=== PATIENT | male | born 1970 | race Caucasian/White ===

== ENCOUNTER → 2017-03-30 | Outpatient (CLI) | payer SELFPAY ==
[~2017-03-30] MED LIST: ALPR.25 PO; ALPR1; BACL10; BACL10 PO; BUPR150T2; CIPR250 PO; CLIN300 PO; Cranberry 4001 EACH PO; DIAZ10; ERGO400 PO; FENTANYL; HYDACE10; HYDACE10 PO; HYDACE5; HYDACE5 PO; LEVFLO250 PO; LEVFLO500 PO; METH10; MULTI-VITAMIN1 EAC1 PO; Norco 10-325 T1 EACH PO; ONDA8ODT MM; OXYACE5T PO; PROC10; PROM25 PO; RXONDA4ODT MM; SODBIC650; SODBIC650 PO; SULTRIDS PO; TEMA15; TEMA15 PO; TEMA30; TRIMIX INJ; VENL37.5; Vitamin C100 M1 PO
== END | disposition home or self-care (01) ==
LOC: LAB 16:50
DX: R31.9 Hematuria, unspecified (principal); Z93.6 Other artificial openings of urinary tract status
CPT/HCPCS: 87070; 87077; 87086; 87186; 87205

== ENCOUNTER → 2018-12-31 | Outpatient (CLI) | payer OTHER | END | disposition home or self-care (01) | LOC: LAB UCHC 08:00 → LAB SHORT 08:00 | DX: N10 Acute pyelonephritis (principal) | CPT/HCPCS: 87077; 87086; 87186 ==

== ENCOUNTER → 2019-01-31 | Outpatient (CLI) | payer OTHER ==
[~2019-01-31] MED LIST changes: +AIRDUO RESPICL1 EAC3 INH; +ASCO500 PO; +BENZ100A PO; +CEFD300 PO; -ERGO400 PO; +GABA300 PO; +GUAI600T33 PO; +NEURONTIN300 MG PO; +VITAMIN D10000 UNIT PO; -Vitamin C100 M1 PO
== END | disposition home or self-care (01) ==
LOC: LAB SHORT 15:00 → LAB UCHC 15:00
DX: N39.0 Urinary tract infection, site not specified (principal)
CPT/HCPCS: 87077; 87086; 87186

== ENCOUNTER 2019-03-17 06:47 | Inpatient (IN) | payer OTHER ==
[~2019-03-17] VITALS: Ht 104.1 cm; Wt 55.8 kg
[~2019-03-17 06:47] MED LIST changes: -AIRDUO RESPICL1 EAC3 INH; -BENZ100A PO; -CEFD300 PO; -GABA300 PO; -GUAI600T33 PO; -NEURONTIN300 MG PO
[2019-03-17] MEDS ORDERED: NEURONTIN300 MG PO (07:11)
[2019-03-17 07:48] LABS: BASOPHILS ABSOLUTE AUTO 0.01 K/mm3 (0.00-0.23); BASOPHILS PERCENT AUTO 0 % (0-2); EOSINOPHILS PERCENT AUTO 0 % (0-6); IMMATURE GRAN ABSOLUTE AUTO 0.07 K/mm3 (0.00-0.10); IMMATURE GRAN PERCENT AUTO 1 % (0-1); LYMPHOCYTES ABSOLUTE AUTO 0.89 K/mm3 (0.84-5.20); LYMPHOCYTES PERCENT AUTO 7 % (21-46); MONOCYTES ABSOLUTE AUTO 1.07 K/mm3 (0.16-1.47); MONOCYTES PERCENT AUTO 9 % (4-13); Mean Corpuscular HGB 32.1 pg (26.0-34.0); Mean Corpuscular HGB Conc 33.3 g/dL (31.5-36.5); Mean Platelet Volume 10.1 fL (9.1-12.4); NEUTROPHILS PERCENT AUTO 84 % (41-73); NRBC ABSOLUTE 0.04 K/mm3 (0.00-0.02); NRBC Auto 0.3 /100 WBC (0.0-0.2); Platelet Count 418 K/mm3 (150-400); RDW Coefficient Variation 14.4 % (11.7-14.2); Red Blood Cell Count 5.61 M/mm3 (4.30-5.90); White Blood Cell Count 12.64 K/mm3 (4.00-11.30)
[2019-03-17 07:49] LABS: Mean Corpuscular Volume 96 fL (80-100)
[2019-03-17 08:09] LABS: Albumin/Globulin Ratio 1.2 (0.8-1.8); Bilirubin, Total 0.8 mg/dL (0.1-1.0); Bun/Creatinine Ratio 46.2 (12.0-20.0); Calcium, Blood 9.5 mg/dL (8.5-10.1); Creatinine, Blood 1.73 mg/dL (0.60-1.20); Globulin, Blood 3.3 g/dL (2.2-4.0); Potassium, Blood 2.9 mmol/L (3.5-5.5); Total Protein, Blood 7.3 g/dL (6.4-8.2)
[2019-03-17 11:06] LABS: Magnesium, Blood 2.1 mg/dL (1.6-2.4); Phosphorus, Blood 2.6 mg/dL (2.5-4.9)
[2019-03-17 11:27] LABS: Source, Urine Clean Catch
[2019-03-17 11:30] LABS: Bilirubin, Urine Neg (Neg); Blood, Urine 2+ (Neg); Glucose Qualitative, Urine Neg (Neg); Ketones, Urine Neg (Neg); Leukocyte Esterase, Urine Neg (Neg); Nitrite, Urine Neg (Neg); Protein, Urine 1+ (Neg); Urobilinogen, Urine NORM (Normal)
[2019-03-17 11:32] LABS: Base Excess Venous -20.1 mmol/L; Bicarbonate Venous 12.4 mmol/L (24.0-30.0); PCO2 Venous 15.8 mmHg (38-42); PO2 Venous 152 mmHg (38-42)
[2019-03-17 11:33] LABS: pH Blood Venous 7.26 (7.34-7.37)
[2019-03-17 11:44] LABS: Appearance, Urine Clear (Clear); Color, Urine Yellow (P-Yellow)
[2019-03-17 11:47] LABS: Bacteria Few /hpf; Squamous Epithelial Cells Rare /hpf (Few)
[2019-03-17] MEDS ORDERED: GABA300 PO (12:39)
--- NOTE | 2019-03-17 15:29 | NUR ---
PT ADMITTED AT 1240. LATE ENTRY PT ADMITTED IN STABLE CONDITION WITH VSS. PT ORIENTED TO ROOM. CALL LIGHT IN REACH. PT MEDICATED FOR PAIN. POTASSIUM AND ANTIBIOTIC STARTED. BEVERAGES GIVEN. PT DENIES OTHER NEEDS.
--- NOTE | 2019-03-17 16:29 | NUR ---
SHIFT SUMMARY PT MEDICATED FOR PAIN 2X SO FAR THIS SHIFT. PT REQUESTING AIR BED. NO BEDS AVAILABLE AT THIS TIME. METAL ORGAN PIPE MAKER NOTIFIED. PT SELF CATHS IN ROOM. OSTOMY WNL. PT FINISHING 2ND POTASSIUM BAG AT THIS TIME. NO CHANGES IS ASSESSMENT AT THIS TIME. WILL CONTINUE TO MONITOR UNTIL TURNOVER IS COMPLETE.
--- NOTE | 2019-03-18 05:07 | NUR ---
SHIFT SUMMARY A/O, ABLE TO MAKE NEEDS KNOWN. COOPERATIVE WITH CARE. CALLS AND ANSWERS QUESTIONS APPROPRIATELY. C/O PAIN/DISCOMFORT AND N/V T/O SHIFT; MEDICATED PER EMAR. VSS/AFEBRILE. NOTED HYPERTENSION; APPEARS ON TREND WITH PREVIOUS PRESSURES. REMAINS ON CLEAR LIQUID DIET; MINIMAL TOLERANCE. APPEARED TO REST OFF AND ON T/O SHIFT. TELE RUNNING SR IN 90S PER PCU FAT PURIFICATION WORKER. NO OTHER CHANGES NOTED. BED IN LOWEST POSITION. CALL LIGHT AND BELONGINGS WITHIN REACH. WCTM. REPORT TO ONCOMING RN.
[2019-03-18 05:50] LABS: BASOPHILS ABSOLUTE AUTO 0.01 K/mm3 (0.00-0.23); BASOPHILS PERCENT AUTO 0 % (0-2); EOSINOPHILS PERCENT AUTO 0 % (0-6); Hematocrit 45.7 % (37.0-53.0); Hemoglobin 15.1 g/dL (13.5-17.5); IMMATURE GRAN ABSOLUTE AUTO 0.06 K/mm3 (0.00-0.10); IMMATURE GRAN PERCENT AUTO 1 % (0-1); LYMPHOCYTES ABSOLUTE AUTO 1.06 K/mm3 (0.84-5.20); LYMPHOCYTES PERCENT AUTO 9 % (21-46); MONOCYTES ABSOLUTE AUTO 0.97 K/mm3 (0.16-1.47); MONOCYTES PERCENT AUTO 8 % (4-13); Mean Corpuscular HGB 32.2 pg (26.0-34.0); Mean Corpuscular Volume 97 fL (80-100); Mean Platelet Volume 10.5 fL (9.1-12.4); NEUTROPHILS ABSOLUTE AUTO 10.04 K/mm3 (1.96-9.15); NEUTROPHILS PERCENT AUTO 83 % (41-73); Platelet Count 245 K/mm3 (150-400); RDW Coefficient Variation 14.6 % (11.7-14.2); RDW Standard Deviation 52.4 fL (35.1-46.3); Red Blood Cell Count 4.69 M/mm3 (4.30-5.90); White Blood Cell Count 12.14 K/mm3 (4.00-11.30)
[2019-03-18 06:09] LABS: Calcium, Blood 8.3 mg/dL (8.5-10.1); Creatinine, Blood 1.49 mg/dL (0.60-1.20)
--- NOTE | 2019-03-18 08:33 | NUR ---
PAIN MED-NORCO DR. ESTEBAN NOTIFIED THAT PT PAIN IS UNCONTROLLED. PT HOME DOSE OF NORCO ORDERED & ADDED. WILL CONTINUE TO ADD.
--- NOTE | 2019-03-18 18:02 | NUR ---
SHIFT SUMMARY RESP PANEL OBTAINED THIS SHIFT. AWAITING RESULTS. PT SLEPT MOST THE AM. MEDICATED MULTIPLE TIMES THIS SHIFT. SEE EMAR. PT NOT TOLERATING MUCH PO INTAKE EXCEPT WATER. IV FLUIDS RUNNING ORDERED. CONTINUED CLEAR LIQUID. PT SELF CATHING. NO OTHER CHANGES IN ASSESSMENT AT THIS TIME. VSS. WILL CONTINUE TO MONITOR UNTIL TURNOVER IS COMPLETE.
[2019-03-18 19:20] LABS: Adenovirus Not Detected (NOT DETECT); Bordetella pertussis Not Detected (NOT DETECT); Chlamydophila pneumoniae Not Detected (NOT DETECT); Coronavirus 229E Not Detected (NOT DETECT); Coronavirus HKU1 Not Detected (NOT DETECT); Coronavirus NL63 Not Detected (NOT DETECT); Coronavirus OC43 Not Detected (NOT DETECT); Human Metapneumovirus Not Detected (NOT DETECT); Human Rhinovirus/Enterovirus Not Detected (NOT DETECT); Influenza A Not Detected (NOT DETECT); Influenza A/2009-H1 Not Detected (NOT DETECT); Influenza A/H1 Not Detected (NOT DETECT); Influenza A/H3 Not Detected (NOT DETECT); Influenza B Not Detected (NOT DETECT); Mycoplasma pneumoniae Not Detected (NOT DETECT); Parainfluenza Virus 1 Not Detected (NOT DETECT); Parainfluenza Virus 2 Not Detected (NOT DETECT); Parainfluenza Virus 3 Not Detected (NOT DETECT); Parainfluenza Virus 4 Not Detected (NOT DETECT); Respiratory Syncytial Virus Not Detected (NOT DETECT)
--- NOTE | 2019-03-19 05:03 | NUR ---
SHIFT SUMMARY PATIENT HAD NO ACUTE CHANGES OBSERVED THIS SHIFT. AXOX 4 AND W/C BOUND/BEDFAST. SELF CATHING AND OSTOMY SELF CARE. REPORTED BACK PAIN AND NORCO GIVEN PER EMAR. PIV REMAINS INTACT. D5W 1/2NS KCL 10 MEQ INFUSING AT 150 mL/HR. VSS/AFBERILE. DENIES SOB AND N/V. SCHEDULE HUMIBID AND TESSALON FOR COUGH GIVEN. MARINE EQUIPMENT PRESERVATION INSPECTOR REPORTS NSR W/PVC AT 73. COOPERATIVE WITH CARE. CALL LIGHT IN REACH. BED IN LOWEST POSITION. WILL CONTINUE TO MONITOR UNTIL DAY SHIFT NURSE ASSUMES CARE.
[2019-03-19 05:49] LABS: BASOPHILS ABSOLUTE AUTO 0.01 K/mm3 (0.00-0.23); BASOPHILS PERCENT AUTO 0 % (0-2); EOSINOPHILS ABSOLUTE AUTO 0.11 K/mm3 (0.00-0.68); EOSINOPHILS PERCENT AUTO 1 % (0-6); Hematocrit 45.5 % (37.0-53.0); Hemoglobin 14.4 g/dL (13.5-17.5); IMMATURE GRAN ABSOLUTE AUTO 0.03 K/mm3 (0.00-0.10); IMMATURE GRAN PERCENT AUTO 0 % (0-1); LYMPHOCYTES ABSOLUTE AUTO 0.82 K/mm3 (0.84-5.20); LYMPHOCYTES PERCENT AUTO 9 % (21-46); MONOCYTES ABSOLUTE AUTO 0.91 K/mm3 (0.16-1.47); MONOCYTES PERCENT AUTO 10 % (4-13); Mean Corpuscular HGB 31.9 pg (26.0-34.0); Mean Corpuscular HGB Conc 31.6 g/dL (31.5-36.5); Mean Platelet Volume 10.7 fL (9.1-12.4); NEUTROPHILS ABSOLUTE AUTO 7.42 K/mm3 (1.96-9.15); NEUTROPHILS PERCENT AUTO 80 % (41-73); Platelet Count 181 K/mm3 (150-400); RDW Coefficient Variation 14.8 % (11.7-14.2); Red Blood Cell Count 4.51 M/mm3 (4.30-5.90)
[2019-03-19 05:54] LABS: Mean Corpuscular Volume 101 fL (80-100)
[2019-03-19 06:09] LABS: Albumin, Blood 2.7 g/dL (3.4-5.0); Albumin/Globulin Ratio 1.1 (0.8-1.8); Bilirubin, Total 0.7 mg/dL (0.1-1.0); Bun/Creatinine Ratio 37.2 (12.0-20.0); Calcium, Blood 7.5 mg/dL (8.5-10.1); Creatinine, Blood 1.37 mg/dL (0.60-1.20); Globulin, Blood 2.4 g/dL (2.2-4.0)
[2019-03-19 06:10] LABS: Total Protein, Blood 5.1 g/dL (6.4-8.2)
--- NOTE | 2019-03-19 06:53 | NUR ---
PT gave this commercial loan underwriter permission to care for him 03/19/2019.
--- NOTE | 2019-03-19 13:44 | NUR ---
Pt. in bed restingb he reports doing much better offered prayers.
--- NOTE | 2019-03-19 14:20 | NUR ---
HE LIKES TO KEEP HIS DOOR CLOSED AND HIS BLINDS SHUT. HE JONES SELF CATHED X1 SO FAR TODAY. HIS ILEOSTOMY WAS DRAINED OF WATERY GREEN LIQUID. IVF'S CONTINUE. INSPITE OF THE 10MEQ OF KCL HIS POTASSIUM LEVEL THIS AM IS 3.0. TELE NSR. NO REPORT OF PVC'S THIS AM.HIS OWN W/C IS IN THE ROOM HE HAS NOT BEEN OOB YET TODAY. HE HAD 1 VISITOR FOR ABOUT AN HOUR. [place] GIVEN X1 FOR BACK PAIN. PAIN DROPPED ONLY TO 7 FROM AN 8.
[2019-03-19 17:02] LABS: Anion Gap 8 mmol/L (6-16); Blood Urea Nitrogen 41 mg/dL (8-24); Bun/Creatinine Ratio 32.3 (12.0-20.0); CO2, Blood 14 mmol/L (21-32); Calcium, Blood 7.7 mg/dL (8.5-10.1); Chloride, Blood 123 mmol/L (98-108); Creatinine, Blood 1.27 mg/dL (0.60-1.20); Glomerular Filtration Rate >60 (60-); Glucose, Blood 112 mg/dL (70-99); Potassium, Blood 3.2 mmol/L (3.5-5.5); Sodium, Blood 145 mmol/L (136-145)
--- NOTE | 2019-03-19 19:37 | NUR ---
TELE ONGOING. LABS IMPROVED EXCEPT FOR A 3.0 POTASSIUM. IVF'S WITH POTASSIOUM CONTINUE. HE REMAINED IN BED. ILEOSTOMY AND KELLEY POUCH WITHOUT PROBLEMS. NORCO GIVEN X2 THIS SHIFT FOR BACK PAIN WITH A LITTLE RELIEF EACH TIME. TOLERATED HIS REGULAR DINNER TRAY WELL.
--- NOTE | 2019-03-20 04:47 | NUR ---
SHIFT SUMMARY: VSS. AFEB. A/OX4. COMMUNICATES NEEDS. FREQUENT DRY COUGH BEFORE HS, PRN COUGH SYRUP ADMINISTERED PER ORDERS, PT HAS SLEPT QUIETLY WITHOUT NOTICEABLE COUGH THROUGH MUCH OF THE NIGHT. SELF CATHED KOCK POUCH X 1. COLOSTOMY POUCH INTACT AND PRODUCING LIQUID BROWN STOOL. BOTH STOMA'S APPEAR RED AND MOIST. NO ACUTE CHANGES OVERNIGHT. WILL CONT TO MONITOR.
[2019-03-20 05:20] LABS: BASOPHILS ABSOLUTE AUTO 0.02 K/mm3 (0.00-0.23); BASOPHILS PERCENT AUTO 0 % (0-2); EOSINOPHILS ABSOLUTE AUTO 0.39 K/mm3 (0.00-0.68); EOSINOPHILS PERCENT AUTO 5 % (0-6); Hematocrit 45.1 % (37.0-53.0); Hemoglobin 14.8 g/dL (13.5-17.5); IMMATURE GRAN ABSOLUTE AUTO 0.02 K/mm3 (0.00-0.10); IMMATURE GRAN PERCENT AUTO 0 % (0-1); LYMPHOCYTES ABSOLUTE AUTO 1.12 K/mm3 (0.84-5.20); LYMPHOCYTES PERCENT AUTO 15 % (21-46); MONOCYTES ABSOLUTE AUTO 0.84 K/mm3 (0.16-1.47); MONOCYTES PERCENT AUTO 12 % (4-13); Mean Corpuscular HGB 32.1 pg (26.0-34.0); Mean Corpuscular HGB Conc 32.8 g/dL (31.5-36.5); Mean Platelet Volume 10.8 fL (9.1-12.4); NEUTROPHILS ABSOLUTE AUTO 4.94 K/mm3 (1.96-9.15); NEUTROPHILS PERCENT AUTO 67 % (41-73); Platelet Count 162 K/mm3 (150-400); RDW Coefficient Variation 14.4 % (11.7-14.2); RDW Standard Deviation 52.4 fL (35.1-46.3); Red Blood Cell Count 4.61 M/mm3 (4.30-5.90); White Blood Cell Count 7.33 K/mm3 (4.00-11.30)
[2019-03-20 05:21] LABS: Mean Corpuscular Volume 98 fL (80-100)
[2019-03-20] MEDS ORDERED: BENZ100A PO (12:48)
[2019-03-20] MEDS ORDERED: GUAI600T33 PO (12:49)
[2019-03-20] MEDS ORDERED: AIRDUO RESPICL1 EAC3 INH (12:50)
[2019-03-20] MEDS ORDERED: CEFD300 PO (12:51)
--- NOTE | 2019-03-20 14:54 | NUR ---
pt discharged PT VERBALIZED UNDERSTANDING OF THE DC INSTRUCTIONS, APPOINTMENT WAS MADE FOR THE PT FOR FOLLOW UP PRIOR TO DC, THE PTS PRESCRIPTIONS WERE FAXED TO [facility] REQUESTED, THE PT WAS ABLE TO DRESS HIMSELF AND TRANSFERED TO THE WHEELCHAIR UNASSISTED, PT IS AWAITING FOR HIS AT THIS TIME FOR DC
== END 2019-03-20 15:19 | disposition home or self-care (01) | DRG 872 ==
LOC: ER 06:47 → MEDS 11:17 → ENPENDDIS 03-20 14:06 → MEDS 03-20 15:19
PROVIDERS: Emergency Medicine; Internal Medicine; Nurse Practitioner Acute Care; ADMIT Internal Medicine
DX: A41.9 Sepsis, unspecified organism (principal); G82.20 Paraplegia, unspecified; J98.11 Atelectasis; N17.9 Acute kidney failure, unspecified; E86.0 Dehydration; Z89.611 Acquired absence of right leg above knee; Z89.612 Acquired absence of left leg above knee; Z93.3 Colostomy status; Z87.891 Personal history of nicotine dependence; G89.4 Chronic pain syndrome; E87.6 Hypokalemia; R19.7 Diarrhea, unspecified; R11.2 Nausea with vomiting, unspecified
CPT/HCPCS: 0099U; 36415; 71046; 74176; 80048; 80053; 81001; 82550; 82803; 82947; 83690; 83735; 84100; 84145; 85025; 87493; 96361; 96365; 96375; 96376; 99285-25; J0456; J0696; J2405; J2550; J3010; J3480; J7030; J7050; J7120

== ENCOUNTER → 2020-04-28 | Outpatient (CLI) | payer OTHER ==
[~2020-04-28] MED LIST changes: +AIRDUO RESPICL1 EAC3 INH; +BENZ100A PO; +CEFD300 PO; +GABA300 PO; +GUAI600T33 PO; +NEURONTIN300 MG PO
== END | disposition home or self-care (01) ==
LOC: LAB SHORT 08:30 → LAB 08:30
DX: R50.9 Fever, unspecified (principal)
CPT/HCPCS: 87086; 87147

== ENCOUNTER 2020-11-05 12:26 | Emergency (ER) | payer OTHER ==
[~2020-11-05] VITALS: Ht 94 cm; Wt 63.5 kg
[2020-11-05] MEDS ORDERED: BENZ100A PO ×2 (13:11→13:19)
[2020-11-05] MEDS ORDERED: ONDA4ODT MM ×2 (13:11→13:19)
== END 2020-11-05 13:20 | disposition home or self-care (01) ==
LOC: ER 12:26
DX: U07.1 COVID-19 (principal); Z88.5 Allergy status to narcotic agent; Z88.2 Allergy status to sulfonamides; Z88.8 Allergy status to other drugs, medicaments and biological substances; Z79.899 Other long term (current) drug therapy; Z87.891 Personal history of nicotine dependence
CPT/HCPCS: 99282

== ENCOUNTER → 2021-06-20 | Outpatient (CLI) | payer OTHER ==
[~2021-06-20] MED LIST changes: +ONDA4ODT MM
== END | disposition home or self-care (01) ==
LOC: LAB 16:28 → LAB SHORT 16:28
DX: L08.0 Pyoderma (principal)
CPT/HCPCS: 87070; 87205

== ENCOUNTER 2023-11-22 09:27 | Emergency (ER) | payer OTHER ==
[~2023-11-22] VITALS: Wt 68.0 kg
[~2023-11-22 09:27] MED LIST changes: +CEPH500 PO; +MELA3 PO; +METO100ER PO; +MIRALAX11910 PO; +MONDOXYNE NL100 MG; +PREGABALIN75 MG PO; +PROBIOTIC1 EA13 PO
[2023-11-22 09:47] VITALS: BP 133/94
[2023-11-22] MEDS ORDERED: Triamcinolone Inj Susp 40 MG / ML 1ML Vial IM ONE (10:05)
[2023-11-22] MEDS ORDERED: TRIDERM28.4 GM TOP (10:07)
== END 2023-11-22 10:20 | disposition home or self-care (01) ==
LOC: ER 09:27
DX: L25.9 Unspecified contact dermatitis, unspecified cause (principal); Z87.891 Personal history of nicotine dependence; Z79.899 Other long term (current) drug therapy; Z88.5 Allergy status to narcotic agent; Z88.2 Allergy status to sulfonamides; Z88.6 Allergy status to analgesic agent; Z88.1 Allergy status to other antibiotic agents; Z88.8 Allergy status to other drugs, medicaments and biological substances
CPT/HCPCS: 96372; 99282-25; J3301

== ENCOUNTER 2023-11-26 19:18 | Emergency (ER) | payer OTHER ==
[~2023-11-26] VITALS: Ht 116.8 cm; Wt 68.0 kg
[~2023-11-26 19:18] MED LIST changes: +TRIDERM28.4 GM TOP
[2023-11-26 20:31] LABS: Base Excess Venous 0.9 mmol/L; Bicarbonate Venous 26.3 mmol/L (24.0-30.0); PCO2 Venous 28.5 mmHg (38-42); pH Blood Venous 7.52 (7.34-7.37)
[2023-11-26 20:39] LABS: BASOPHILS ABSOLUTE AUTO 0.02 K/mm3 (0.00-0.23); BASOPHILS PERCENT AUTO 0 % (0-2); EOSINOPHILS ABSOLUTE AUTO 0.06 K/mm3 (0.00-0.68); EOSINOPHILS PERCENT AUTO 1 % (0-6); Hematocrit 44.9 % (37.0-53.0); Hemoglobin 15.6 g/dL (13.5-17.5); IMMATURE GRAN ABSOLUTE AUTO 0.02 K/mm3 (0.00-0.10); IMMATURE GRAN PERCENT AUTO 0 % (0-1); LYMPHOCYTES ABSOLUTE AUTO 0.54 K/mm3 (0.84-5.20); LYMPHOCYTES PERCENT AUTO 10 % (21-46); MONOCYTES ABSOLUTE AUTO 0.57 K/mm3 (0.16-1.47); MONOCYTES PERCENT AUTO 11 % (4-13); Mean Corpuscular HGB 34.5 pg (26.0-34.0); Mean Corpuscular HGB Conc 34.7 g/dL (31.5-36.5); Mean Corpuscular Volume 99 fL (80-100); Mean Platelet Volume 10.5 fL (9.1-12.4); NEUTROPHILS ABSOLUTE AUTO 4.19 K/mm3 (1.96-9.15); NEUTROPHILS PERCENT AUTO 78 % (41-73); Platelet Count 163 K/mm3 (150-400); RDW Coefficient Variation 15.2 % (11.7-14.2); RDW Standard Deviation 55.4 fL (35.1-46.3); Red Blood Cell Count 4.52 M/mm3 (4.30-5.90)
[2023-11-26 21:28] LABS: Albumin, Blood 3.6 g/dL (3.4-5.0); Bilirubin, Total 0.9 mg/dL (0.1-1.0); Calcium, Blood 9.9 mg/dL (8.5-10.1); Creatinine, Blood 1.16 mg/dL (0.60-1.20); Globulin, Blood 3.6 g/dL (2.2-4.0); Potassium, Blood 4.6 mmol/L (3.5-5.5); Total Protein, Blood 7.2 g/dL (6.4-8.2)
[2023-11-26] MEDS ORDERED: Lactated Ringer's 1,000 ML IV SCH (22:55)
[2023-11-26] MEDS ORDERED: HYDROmorphone HCl/Pf 1MG SYR IV ONE (23:00)
[2023-11-27] MEDS ORDERED: NS 1,000 ML IV SCH (00:05)
[2023-11-27 00:21] LABS: Source, Urine Urostomy Bag
[2023-11-27 00:26] LABS: Bilirubin, Urine Neg (Neg); Blood, Urine 5+ (Neg); Glucose Qualitative, Urine Neg (Neg); Ketones, Urine 2+ (Neg); Leukocyte Esterase, Urine 3+ (Neg); Nitrite, Urine Neg (Neg); Protein, Urine 2+ (Neg); Specific Gravity, Urine 1.005 (1.003-1.022); Urobilinogen, Urine NORM (Normal)
[2023-11-27] MEDS ORDERED: HYDROmorphone HCl/Pf 1MG SYR IV ONE (00:30)
[2023-11-27 00:33] LABS: Appearance, Urine Cloudy (Clear); Color, Urine Yellow (P-Yellow)
[2023-11-27 00:34] LABS: Amorphous Mod (0-Heavy); Bacteria Mod /hpf; Mucus Mod (0-Heavy); Squamous Epithelial Cells Not Seen /hpf (Few); White Blood Cells, Urine 50-100 /hpf (0-5)
[2023-11-27 02:22] LABS: Calcium, Blood 8.3 mg/dL (8.5-10.1); Creatinine, Blood 1.22 mg/dL (0.60-1.20); Potassium, Blood 4.2 mmol/L (3.5-5.5)
[2023-11-27 02:30] VITALS: BP 145/98
[2023-11-27 02:30] LABS: C DIFFICILE DNA NEGATIVE (Negative)
== END 2023-11-27 03:26 | disposition home or self-care (01) ==
LOC: ER 19:18
PROVIDERS: Emergency Medicine; Student in an Organized Health Care Education/Training Program
DX: R11.2 Nausea with vomiting, unspecified (principal); R19.7 Diarrhea, unspecified; Z79.899 Other long term (current) drug therapy; Z88.5 Allergy status to narcotic agent; Z88.2 Allergy status to sulfonamides; Z88.8 Allergy status to other drugs, medicaments and biological substances
CPT/HCPCS: 80048; 80053; 81001; 82803; 83605; 83690; 85025; 87086; 87493; 93005; 93010; 96361; 96374; 96376; 99284-25; J1170; J7030; J7120

== ENCOUNTER 2024-01-23 19:12 | Inpatient (IN) | payer OTHER ==
[~2024-01-23] VITALS: Ht 121.9 cm; Wt 71.5 kg
[2024-01-23 20:16] LABS: Bilirubin, Total 0.5 mg/dL (0.1-1.0); Bun/Creatinine Ratio 44.8 (12.0-20.0); Calcium, Blood 7.6 mg/dL (8.5-10.1); Creatinine, Blood 1.16 mg/dL (0.60-1.20); Globulin, Blood 3.1 g/dL (2.2-4.0); Potassium, Blood 4.7 mmol/L (3.5-5.5); Total Protein, Blood 6.1 g/dL (6.4-8.2)
[2024-01-23 20:16] LABS: Influenza A, PCR NEGATIVE (NEGATIVE); Influenza B, PCR NEGATIVE (NEGATIVE); Resp Syncytial Virus, PCR NEGATIVE (NEGATIVE); SARS-Cov-2 (COVID-19) PCR, MMC NEGATIVE (NEGATIVE)
[2024-01-23 21:10] LABS: BASOPHILS ABSOLUTE AUTO 0.03 K/mm3 (0.00-0.23); BASOPHILS PERCENT AUTO 1 % (0-2); EOSINOPHILS ABSOLUTE AUTO 0.01 K/mm3 (0.00-0.68); EOSINOPHILS PERCENT AUTO 0 % (0-6); Hematocrit 45.3 % (37.0-53.0); Hemoglobin 14.4 g/dL (13.5-17.5); IMMATURE GRAN PERCENT AUTO 2 % (0-1); LYMPHOCYTES ABSOLUTE AUTO 0.57 K/mm3 (0.84-5.20); LYMPHOCYTES PERCENT AUTO 9 % (21-46); MONOCYTES ABSOLUTE AUTO 0.58 K/mm3 (0.16-1.47); MONOCYTES PERCENT AUTO 9 % (4-13); Mean Corpuscular HGB 35.1 pg (26.0-34.0); Mean Corpuscular HGB Conc 31.8 g/dL (31.5-36.5); Mean Corpuscular Volume 111 fL (80-100); NEUTROPHILS ABSOLUTE AUTO 5.08 K/mm3 (1.96-9.15); NEUTROPHILS PERCENT AUTO 80 % (41-73); NRBC ABSOLUTE 0.04 K/mm3 (0.00-0.02); NRBC Auto 0.6 /100 WBC (0.0-0.2); Platelet Count 177 K/mm3 (150-400); RDW Coefficient Variation 15.6 % (11.7-14.2); RDW Standard Deviation 63.4 fL (35.1-46.3); White Blood Cell Count 6.37 K/mm3 (4.00-11.30)
[2024-01-23 22:38] LABS: Base Excess Venous -23.5 mmol/L; Bicarbonate Venous 10.2 mmol/L (24.0-30.0); PCO2 Venous 12.6 mmHg (38-42)
[2024-01-23 22:40] LABS: pH Blood Venous 7.19 (7.34-7.37)
[2024-01-23] MEDS ORDERED: NS 1,000 ML IV SCH ×2 (22:45→23:30)
[2024-01-23] MEDS ORDERED: Ondansetron HCl 2 MG / ML 2ML Vial IV ONE (22:50)
[2024-01-23] MEDS ORDERED: Lactated Ringer's 1,000 ML IV SCH (23:05)
[2024-01-23] MEDS ORDERED: Sodium Bicarb 8.4% Inj 150 MEQ in Dextrose 5% 1,000 ML IV ONE (23:25)
[2024-01-23] MEDS ORDERED: Sodium Bicarb 8.4% 1 MEQ/ML 50 ML Vial IV ONE (23:30)
[2024-01-23] MEDS ORDERED: CALCIUM GLUC IN NACL, ISO-OSM 100 ML IV ONE (23:35)
[2024-01-23] MEDS ORDERED: Potassium Acetate 20 MEQ in NS 100 ML IV ONE (23:45)
[2024-01-23] MEDS ORDERED: HYDROmorphone HCl/Pf 1MG SYR IV ONE (23:45)
[2024-01-23 23:55] LABS: Magnesium, Blood 2.2 mg/dL (1.6-2.4); Phosphorus, Blood 2.1 mg/dL (2.5-4.9)
[2024-01-23] MEDS ORDERED: Potassium Chl 20MEQ/Water100ML 100 ML IV STA (23:55)
[2024-01-24] VITALS (7 sets, daily range): BP systolic 111–155; BP diastolic 76–104
[2024-01-24] MEDS ORDERED: Ondansetron HCl 2 MG / ML 2ML Vial IV PRN (00:20)
[2024-01-24] MEDS ORDERED: Sodium Bicarb 8.4% Inj 150 MEQ in Dextrose 5% 1,000 ML IV ONE (00:20)
[2024-01-24] MEDS ORDERED: FLU VACC TS2024-25(6MOS UP)/PF 45 MCG/0.5 ML SYRINGE IM ONE (00:25)
[2024-01-24] MEDS ORDERED: FentaNYL Citrate 50 MCG/ML 2 ML Injection IV PRN (00:25)
[2024-01-24 00:32] LABS: Source, Urine Clean Catch
[2024-01-24 00:36] LABS: Bilirubin, Urine Neg (Neg); Blood, Urine 4+ (Neg); Glucose Qualitative, Urine Neg (Neg); Ketones, Urine 2+ (Neg); Leukocyte Esterase, Urine 3+ (Neg); Nitrite, Urine Neg (Neg); Protein, Urine 3+ (Neg); Urobilinogen, Urine NORM (Normal)
[2024-01-24 00:44] LABS: Appearance, Urine Hazy (Clear); Color, Urine Pale Yellow (P-Yellow)
[2024-01-24 00:45] LABS: Amorphous Heavy (0-Heavy); Bacteria Many /hpf; Squamous Epithelial Cells Not Seen /hpf (Few); White Blood Cells, Urine 50-100 /hpf (0-5)
[2024-01-24 00:46] LABS: U Amphetamine Screen Not Detected; U Barbituate Screen Not Detected; U Benzodiazapine Screen Not Detected; U Buprenorphine Screen Not Detected; U Cannabinoids Screen Not Detected; U Cocaine Screen Not Detected; U Methadone Screen Not Detected; U Methamphetamine Screen Not Detected; U Opiates Screen DETECTED; U Oxycodone Screen DETECTED; U Phencyclidine Screen Not Detected
[2024-01-24] MEDS ORDERED: LevoFLOXacin 750 MG/D5W 150ML 150 ML IV SCH (03:14)
[2024-01-24] MEDS ORDERED: Potassium Phosphate Dibasic 20 MM in Dextrose 5% 500 ML IV ONE (03:30)
[2024-01-24 04:27] LABS: BASOPHILS ABSOLUTE AUTO 0.01 K/mm3 (0.00-0.23); BASOPHILS PERCENT AUTO 0 % (0-2); EOSINOPHILS ABSOLUTE AUTO 0.01 K/mm3 (0.00-0.68); EOSINOPHILS PERCENT AUTO 0 % (0-6); Hematocrit 36.3 % (37.0-53.0); Hemoglobin 12.1 g/dL (13.5-17.5); IMMATURE GRAN ABSOLUTE AUTO 0.03 K/mm3 (0.00-0.10); IMMATURE GRAN PERCENT AUTO 1 % (0-1); LYMPHOCYTES PERCENT AUTO 6 % (21-46); MONOCYTES ABSOLUTE AUTO 0.39 K/mm3 (0.16-1.47); MONOCYTES PERCENT AUTO 11 % (4-13); Mean Corpuscular HGB 35.8 pg (26.0-34.0); Mean Corpuscular HGB Conc 33.3 g/dL (31.5-36.5); Mean Corpuscular Volume 107 fL (80-100); Mean Platelet Volume 9.6 fL (9.1-12.4); NEUTROPHILS ABSOLUTE AUTO 3.02 K/mm3 (1.96-9.15); NEUTROPHILS PERCENT AUTO 82 % (41-73); Platelet Count 121 K/mm3 (150-400); RDW Coefficient Variation 15.7 % (11.7-14.2); RDW Standard Deviation 61.2 fL (35.1-46.3); Red Blood Cell Count 3.38 M/mm3 (4.30-5.90); White Blood Cell Count 3.66 K/mm3 (4.00-11.30)
[2024-01-24 04:33] LABS: Base Excess Venous -8.6 mmol/L; Bicarbonate Venous 17.4 mmol/L (24.0-30.0)
[2024-01-24] MEDS ORDERED: HYDROmorphone HCl/Pf 1MG SYR IV PRN (04:40)
[2024-01-24 04:50] LABS: Albumin, Blood 2.8 g/dL (3.4-5.0); Bilirubin, Total 0.7 mg/dL (0.1-1.0); Bun/Creatinine Ratio 40.2 (12.0-20.0); Calcium, Blood 8.2 mg/dL (8.5-10.1); Creatinine, Blood 1.17 mg/dL (0.60-1.20); Globulin, Blood 2.7 g/dL (2.2-4.0); Potassium, Blood 4.1 mmol/L (3.5-5.5); Total Protein, Blood 5.5 g/dL (6.4-8.2)
[2024-01-24] MEDS ORDERED: Prochlorperazine Edisylate 10 mg Vial IV PRN (04:50)
--- NOTE | 2024-01-24 06:32 | NUR ---
SHIFT SUMMARY NEURO: A/OX4. TREMORS BASELING. PARAPALEGIC WITH BILTERAL AKA. CARDIAC: TACHYCARDIC STILL. LUNGS: C/O SOB OR "POSSIBLY ANXIETY". PT ON ROOM AIR. LUNGS DIMINISHED BUT CLEAR. PT REPORTS LOW LUNG VOLUMES ATE BASELINE DT BODY HABITUS. GI/: OSTOMY TO RUQ. DARK GREEN/BROWN, SOFT OUTPUT. C/O N/V- ZOFRAN AND COMPEZINE GIVEN. PT HAS A KOCK BLADDER AND SELF CATHS. INTERMITTENT EPISODES OF BLADDER SPASM. PT REPORTS UNABLE TO KEEP ORAL MEDS DOWN SINCE . POTASSIUM AND PHOS REPLACED. PT CURRENTLY ON BICARB GTT.
[2024-01-24] MEDS ORDERED: Metoprolol Succinate 50 MG TABCR PO SCH (09:00)
[2024-01-24] MEDS ORDERED: Triamcinolone Acet 0.1% Cream 15 gm TOP SCH (09:00)
[2024-01-24] MEDS ORDERED: Enoxaparin 40 MG/0.4 ML SYR SC SCH (09:00)
[2024-01-24] MEDS ORDERED: Lactobacil 2-S.Thermo-Bifido 1 1 Cap PO SCH (09:00)
--- NOTE | 2024-01-24 10:25 | NUR ---
pt is alert, oriented and conversant. Seems withdrawn, quiet but appropriate in conversation. C/o pain 8/ and given 1 mg dilaudid with minimal relief of chronic back pain. Denies nausea. Noted liquid brown stool in his colostomy, hyperactive bowel tones noted throughout. Self catheterization for urine output. IV infusions complete; labs will be drawn at 1030.
--- NOTE | 2024-01-24 10:55 | NUR ---
Difficulty with control of chronic back pain. Call to Dr. Talamantes and he will restart his home medication regime.
[2024-01-24] MEDS ORDERED: HYDROcodone 10-APAP 325 TAB PO PRN ×2 (11:15→11:55)
[2024-01-24 11:25] LABS: Magnesium, Blood 1.8 mg/dL (1.6-2.4)
[2024-01-24 11:26] LABS: Bun/Creatinine Ratio 38.4 (12.0-20.0); Calcium, Blood 7.7 mg/dL (8.5-10.1); Creatinine, Blood 1.12 mg/dL (0.60-1.20); Phosphorus, Blood 1.6 mg/dL (2.5-4.9); Potassium, Blood 3.8 mmol/L (3.5-5.5)
[2024-01-24] MEDS ORDERED: Lactated Ringer's 1,000 ML IV SCH (12:00)
[2024-01-24] MEDS ORDERED: Potassium Phosphate Dibasic 30 MM in Dextrose 5% 500 ML IV STA (12:02)
[2024-01-24] MEDS ORDERED: Pregabalin 75 MG Cap PO SCH (21:00)
[2024-01-24] MEDS ORDERED: Melatonin 3 MG Tab PO SCH (21:00)
[2024-01-24] MEDS ORDERED: Calcium Carbonate 500 MG Tab Chew PO SCH (21:00)
[2024-01-25 04:02] LABS: BASOPHILS ABSOLUTE AUTO 0.01 K/mm3 (0.00-0.23); BASOPHILS PERCENT AUTO 0 % (0-2); EOSINOPHILS ABSOLUTE AUTO 0.05 K/mm3 (0.00-0.68); EOSINOPHILS PERCENT AUTO 2 % (0-6); Hematocrit 33.6 % (37.0-53.0); Hemoglobin 11.2 g/dL (13.5-17.5); IMMATURE GRAN ABSOLUTE AUTO 0.04 K/mm3 (0.00-0.10); IMMATURE GRAN PERCENT AUTO 2 % (0-1); LYMPHOCYTES ABSOLUTE AUTO 0.17 K/mm3 (0.84-5.20); LYMPHOCYTES PERCENT AUTO 6 % (21-46); MONOCYTES ABSOLUTE AUTO 0.24 K/mm3 (0.16-1.47); MONOCYTES PERCENT AUTO 9 % (4-13); Mean Corpuscular HGB Conc 33.3 g/dL (31.5-36.5); Mean Corpuscular Volume 108 fL (80-100); NEUTROPHILS PERCENT AUTO 81 % (41-73); Platelet Count 97 K/mm3 (150-400); RDW Coefficient Variation 16.1 % (11.7-14.2); RDW Standard Deviation 63.7 fL (35.1-46.3); Red Blood Cell Count 3.11 M/mm3 (4.30-5.90); White Blood Cell Count 2.71 K/mm3 (4.00-11.30)
[2024-01-25 04:36] LABS: Albumin, Blood 2.5 g/dL (3.4-5.0); Bilirubin, Total 0.3 mg/dL (0.1-1.0); Bun/Creatinine Ratio 32.7 (12.0-20.0); Calcium, Blood 7.9 mg/dL (8.5-10.1); Creatinine, Blood 1.07 mg/dL (0.60-1.20); Globulin, Blood 2.6 g/dL (2.2-4.0); Magnesium, Blood 1.7 mg/dL (1.6-2.4); Phosphorus, Blood 2.4 mg/dL (2.5-4.9); Potassium, Blood 4.2 mmol/L (3.5-5.5); Total Protein, Blood 5.1 g/dL (6.4-8.2)
[2024-01-25 07:34] VITALS: BP 120/84
[2024-01-25] MEDS ORDERED: Ergocalciferol 50000 Intn'l Units PO SCH (08:00)
[2024-01-25] MEDS ORDERED: Sodium Bicarbonate 650 MG Tab PO SCH ×2 (09:10→21:00)
[2024-01-25] MEDS ORDERED: Lidocaine 4% 1 Patch TOP PRN (09:10)
[2024-01-25 11:20] VITALS: BP 123/86
[2024-01-25 12:00] LABS: IMMATURE RETIC FRACTION 25.7 % (2.3-16.0); RETIC HGB EQUIVALENT 39.2 pg (28.20-36.60); RETICULOCYTE ABSOLUTE 0.137 M/mm3 (0.0200-0.1100); RETICULOCYTE COUNT PERCENT 4.39 % (0.50-2.50)
[2024-01-25 12:33] LABS: Percent Saturation 41.2 % (20.0-50.0)
[2024-01-25 12:53] LABS: International Normalized Ratio 0.99; Prothrombin Time Results 10.6 Sec (9.7-11.5)
--- NOTE | 2024-01-25 13:19 | NUR ---
Dr. Talamantes was here to talk with the pt but pt was arousable but unable to stay awake for a conversation. Concern for somnulence, poor p.o. intake, and hypoxia while sleeping. PT will not be discharged by the hospitalist today.
[2024-01-25 13:25] LABS: Base Excess Venous -3.9 mmol/L; Bicarbonate Venous 21.4 mmol/L (24.0-30.0); PCO2 Venous 39.7 mmHg (38-42); pH Blood Venous 7.35 (7.34-7.37)
--- NOTE | 2024-01-25 13:34 | NUR ---
DR. MALDONADO CAME TO BEDSIDE TO DISCUSS THE PLAN OF CARE WITH THE PT AND THE PT COULD NOT STAY AWAKE FOR THE CONVERSATION. THE PT IS DESATURATING TO THE 80'S WHILE ASLEEP AND IS NOW SOMULENT BUT ARROUSABLE. NO PLAN FOR DISCHARGE TODAY
[2024-01-25] MEDS ORDERED: Lactated Ringer's 1,000 ML IV SCH (14:00)
[2024-01-25] MEDS ORDERED: Mag Sulfate 1 GM/D5% 100ML 100 ML IV STA (14:01)
[2024-01-25] MEDS ORDERED: Sodium Phosphate 10 MM in Dextrose 5% 250 ML IV STA (14:04)
[2024-01-25 15:19] VITALS: BP 125/82
--- NOTE | 2024-01-25 17:26 | NUR ---
SHIFT SUMMARY THE PT HAS BEEN ORIENTEDX4, BUT THIS AFTERNOON HE WAS MORE SOMULENT THAN IN THE MORNING. THE PT IS ABLE TO MAKE HIS NEEDS KNOWN. HE STRAIGHT CATH'S HIMSELF, AND HAS AN OSTOMY. THE PT HAS HAD A POOR APPETITE, BUT DENIES ANY N/V. HE HAS BEEN ON 1L NC THIS SHIFT, BUT HE DOES DESATURATE WHEN ASLEEP. DR. MALDONADO ORDERED A SP02 SLEEP TEST FOR TONIGHT. ON TELE HE HAS BEEN SR. BP STABLE. SEE PREVIOUS NOTES FOR MORE DETAILS ON THE SHIFT.
[2024-01-25 21:16] VITALS: BP 123/83
[2024-01-26 00:40] VITALS: BP 149/94
[2024-01-26] MEDS ORDERED: TraZODone HCl 50 MG Tab PO ONE (00:55)
[2024-01-26 03:27] VITALS: BP 123/94
[2024-01-26 04:21] LABS: Hematocrit 32.7 % (37.0-53.0); Mean Corpuscular HGB 35.9 pg (26.0-34.0); Mean Corpuscular HGB Conc 33.6 g/dL (31.5-36.5); Mean Corpuscular Volume 107 fL (80-100); Mean Platelet Volume 11.8 fL (9.1-12.4); Platelet Count 127 K/mm3 (150-400); RDW Coefficient Variation 16.1 % (11.7-14.2); RDW Standard Deviation 63.3 fL (35.1-46.3); Red Blood Cell Count 3.06 M/mm3 (4.30-5.90); White Blood Cell Count 3.11 K/mm3 (4.00-11.30)
[2024-01-26 04:46] LABS: BAND PERCENT MAN 2 % (0-8); BASOPHILS PERCENT MAN 0 % (0-2); EOSINOPHILS ABSOLUTE MAN 0.09 K/mm3 (0.00-0.68); EOSINOPHILS PERCENT MAN 3 % (0-6); LYMPHOCYTES ABSOLUTE MAN 0.31 K/mm3 (0.84-5.20); LYMPHOCYTES PERCENT MAN 10 % (21-46); METAMYELOCYTE ABSOLUTE MAN 0.03 K/mm3 (0.00-0.00); METAMYELOCYTE PERCENT MAN 1 % (0-0); MONOCYTES ABSOLUTE MAN 0.27 K/mm3 (0.16-1.47); MONOCYTES PERCENT MAN 9 % (4-13); NEUTROPHILS ABSOLUTE MAN 2.39 K/mm3 (1.96-9.15); SEG NEUTROPHILS PERCENT MAN 75 % (41-73); TOTAL CELLS COUNTED 100
[2024-01-26 04:48] LABS: Albumin, Blood 2.5 g/dL (3.4-5.0); Bilirubin, Total 0.4 mg/dL (0.1-1.0); Bun/Creatinine Ratio 28.6 (12.0-20.0); Calcium, Blood 8.7 mg/dL (8.5-10.1); Creatinine, Blood 1.12 mg/dL (0.60-1.20); Globulin, Blood 2.6 g/dL (2.2-4.0); Magnesium, Blood 1.9 mg/dL (1.6-2.4); Phosphorus, Blood 1.6 mg/dL (2.5-4.9); Potassium, Blood 5.5 mmol/L (3.5-5.5); Total Protein, Blood 5.1 g/dL (6.4-8.2)
--- NOTE | 2024-01-26 06:52 | NUR ---
NOC SHIFT SUMMARY PT ORIENTED X4, ABLE TO MAKE NEEDS KNOWN. PLEASANT AND COOPERATIVE. ALERT T/O SHIFT, STRUGGLING WITH INSOMNIA. SPOKE WITH DR. DICKSON AND GIVEN MELATONIN AND TRAZODONE PRN, SLEPT INTERMITTENTLY. PER DUARTE GONZALEZ, RT NO SLEEP STUDY DUE TO PT WEARING CPAP ALREADY AT HOME AND NO OXYGEN DEMAND. NO ACUTE CHANGES OVERNIGHT.
[2024-01-26 07:20] VITALS: BP 133/91
[2024-01-26] MEDS ORDERED: Sodium Phosphate 20 MM in Dextrose 5% 500 ML IV STA (07:27)
[2024-01-26] MEDS ORDERED: TUMS500 MG PO (10:08)
[2024-01-26] MEDS ORDERED: LEVO750 PO (10:12)
[2024-01-26] MEDS ORDERED: ERGO50000 PO (10:15)
[2024-01-26 11:05] VITALS: BP 122/85
--- NOTE | 2024-01-26 14:16 | NUR ---
D/C SUMMARY PT IS A&OX4[facility] AND MAKING HIS NEEDS KNOWN. THE PT'S V/S HAVE BEEN STABLE, AND HE HAS BEEN ALERT ALL SHIFT. THE PT D/C'D AROUND 1325. AT DISCHARGE THE PT STATED THAT HIS SCROTOM IS MORE SWOLLEN THEN NORMAL. HIS SCROTOM HAS REMAINED THE SAME SIZE AND COLOR THE LAST TWO DAYS, THIS MOTHERCRAFT NURSE CARED FOR THE PT. THE PT DENIES ANY PAIN, AND NO DISCOLORATION WAS OBSERVED. THE PT ASKED FOR DR. MALDONADO TO ASSESS THEM BEFORE HE D/C'D DR. MALDONADO IS GOING TO LET THE PT'S PCP KNOW AND SAID HE CAN GET IMIAGING OUTPT. THE PT AGRREED THAT IF HE NOTICES INCREASED SWELLING OR HAS PAIN BEFORE HE SEE'S HIS PCP HE WILL COME BACK INTO THE ER. HIS POWERGLIDE WAS D/C'D BEFORE D/C, AND ALL BELONGINGS WERE RETURNED. NO FURTHER NOTES.
[2024-01-28 01:31] LABS: VITAMIN D,1,25-DIHYDROXY 33.8 pg/mL (19.9-79.3)
== END 2024-01-26 13:25 | disposition home or self-care (01) | DRG 193 ==
LOC: ER 19:12 → PCU 01-24 00:18
PROVIDERS: Emergency Medicine; Student in an Organized Health Care Education/Training Program; ADMIT Internal Medicine
DX: J18.9 Pneumonia, unspecified organism (principal); J96.01 Acute respiratory failure with hypoxia; N39.0 Urinary tract infection, site not specified; D61.818 Other pancytopenia; E87.20 Acidosis, unspecified; G82.20 Paraplegia, unspecified; F11.20 Opioid dependence, uncomplicated; K52.9 Noninfective gastroenteritis and colitis, unspecified; E86.0 Dehydration; E55.9 Vitamin D deficiency, unspecified; S24.102S Unspecified injury at T2-T6 level of thoracic spinal cord, sequela; X58.XXXS Exposure to other specified factors, sequela; G89.29 Other chronic pain; M54.9 Dorsalgia, unspecified; N31.9 Neuromuscular dysfunction of bladder, unspecified; N50.89 Other specified disorders of the male genital organs; Z89.612 Acquired absence of left leg above knee; Z89.611 Acquired absence of right leg above knee; Z88.8 Allergy status to other drugs, medicaments and biological substances; Z88.5 Allergy status to narcotic agent; Z88.1 Allergy status to other antibiotic agents; Z88.2 Allergy status to sulfonamides
CPT/HCPCS: 0241U; 36415; 71046; 80048; 80053; 81001; 82306; 82330; 82607; 82652; 82728; 82746; 82803; 83540; 83550; 83690; 83735; 83880; 83970; 84100; 84132; 84484; 85007; 85025; 85027; 85045; 85060; 85610; 85730; 87086; 93005; 93010; 94760; 96361; 96374; 96375; 99285-25; A9270; C1751; J0612; J0780; J1171; J1956; J2405; J3010; J3475; J3480; J7030; J7060; J7070; J7120

== ENCOUNTER 2024-03-15 11:06 | Inpatient (IN) | payer MEDICARE, OTHER ==
[~2024-03-15] VITALS: Ht 177.8 cm; Wt 73.8 kg
[~2024-03-15 11:06] MED LIST changes: +ERGO50000 PO; +HYDACE10B PO; +LEVO750 PO; +TUMS500 MG PO
[2024-03-15 12:56] LABS: Albumin, Blood 3.5 g/dL (3.4-5.0); Albumin/Globulin Ratio 0.9 (0.8-1.8); Bilirubin, Total 0.6 mg/dL (0.1-1.0); Bun/Creatinine Ratio 31.1 (12.0-20.0); Creatinine, Blood 1.32 mg/dL (0.60-1.20); Globulin, Blood 3.8 g/dL (2.2-4.0); Potassium, Blood 5.1 mmol/L (3.5-5.5); Total Protein, Blood 7.3 g/dL (6.4-8.2)
[2024-03-15 13:45] LABS: BASOPHILS ABSOLUTE AUTO 0.01 K/mm3 (0.00-0.23); BASOPHILS PERCENT AUTO 0 % (0-2); EOSINOPHILS ABSOLUTE AUTO 0.01 K/mm3 (0.00-0.68); EOSINOPHILS PERCENT AUTO 0 % (0-6); Hematocrit 37.6 % (37.0-53.0); Hemoglobin 12.6 g/dL (13.5-17.5); IMMATURE GRAN ABSOLUTE AUTO 0.04 K/mm3 (0.00-0.10); IMMATURE GRAN PERCENT AUTO 1 % (0-1); LYMPHOCYTES ABSOLUTE AUTO 0.47 K/mm3 (0.84-5.20); LYMPHOCYTES PERCENT AUTO 7 % (21-46); MONOCYTES ABSOLUTE AUTO 0.47 K/mm3 (0.16-1.47); MONOCYTES PERCENT AUTO 7 % (4-13); Mean Corpuscular HGB Conc 33.5 g/dL (31.5-36.5); Mean Corpuscular Volume 107 fL (80-100); Mean Platelet Volume 9.4 fL (9.1-12.4); NEUTROPHILS PERCENT AUTO 86 % (41-73); NRBC ABSOLUTE 0.05 K/mm3 (0.00-0.02); NRBC Auto 0.7 /100 WBC (0.0-0.2); Platelet Count 138 K/mm3 (150-400); RDW Coefficient Variation 16.2 % (11.7-14.2); RDW Standard Deviation 62.5 fL (35.1-46.3)
[2024-03-15] MEDS ORDERED: Ondansetron HCl 2 MG / ML 2ML Vial IV ONE ×2 (14:15→17:10)
[2024-03-15] MEDS ORDERED: NS 1,000 ML IV SCH (14:15)
[2024-03-15] MEDS ORDERED: HYDROmorphone HCl/Pf 1MG SYR IV ONE ×2 (14:15→17:00)
[2024-03-15 14:48] LABS: Source, Urine Clean Catch
[2024-03-15 14:52] LABS: Appearance, Urine Clear (Clear); Bilirubin, Urine Neg (Neg); Blood, Urine 4+ (Neg); Color, Urine Yellow (P-Yellow); Glucose Qualitative, Urine Neg (Neg); Ketones, Urine 2+ (Neg); Leukocyte Esterase, Urine Neg (Neg); Nitrite, Urine Neg (Neg); Protein, Urine 3+ (Neg); Urobilinogen, Urine NORM (Normal)
[2024-03-15 15:07] LABS: Amorphous Light (0-Heavy); Bacteria Many /hpf; Squamous Epithelial Cells Rare /hpf (Few)
[2024-03-15 15:31] LABS: Influenza A, PCR NEGATIVE (NEGATIVE); Influenza B, PCR NEGATIVE (NEGATIVE); Resp Syncytial Virus, PCR NEGATIVE (NEGATIVE); SARS-Cov-2 (COVID-19) PCR, MMC NEGATIVE (NEGATIVE)
[2024-03-15 17:00] LABS: Base Excess Venous -13.7 mmol/L; Bicarbonate Venous 14.2 mmol/L (24.0-30.0); PCO2 Venous 43.6 mmHg (38-42)
[2024-03-15 17:01] LABS: pH Blood Venous 7.15 (7.34-7.37)
[2024-03-15] MEDS ORDERED: LORazepam 2 MG/ML 1ML Injection IV ONE (17:10)
[2024-03-15] MEDS ORDERED: LORazepam 2 MG/ML 1ML Injection IV PRN (18:15)
[2024-03-15] MEDS ORDERED: Ondansetron HCl 2 MG / ML 2ML Vial IV PRN (18:15)
[2024-03-15] MEDS ORDERED: FLU VACC TS2024-25(6MOS UP)/PF 45 MCG/0.5 ML SYRINGE IM ONE (18:15)
[2024-03-15] MEDS ORDERED: ChlordiazePOXIDE 25 MG Cap PO PRN (18:15)
[2024-03-15] MEDS ORDERED: Sodium Bicarb 8.4% Inj 150 MEQ in Dextrose 5% 1,000 ML IV SCH (18:30)
[2024-03-15] MEDS ORDERED: Enoxaparin 40 MG/0.4 ML SYR SC SCH (19:00)
[2024-03-15] MEDS ORDERED: FentaNYL Citrate 50 MCG/ML 2 ML Injection IV PRN (19:30)
[2024-03-15 19:32] LABS: U Amphetamine Screen Not Detected; U Barbituate Screen Not Detected; U Benzodiazapine Screen Not Detected; U Buprenorphine Screen Not Detected; U Cannabinoids Screen Not Detected; U Cocaine Screen Not Detected; U Methadone Screen Not Detected; U Methamphetamine Screen Not Detected; U Opiates Screen DETECTED; U Oxycodone Screen Not Detected; U Phencyclidine Screen Not Detected
[2024-03-15 19:55] LABS: Bun/Creatinine Ratio 35.3 (12.0-20.0); Calcium, Blood 7.5 mg/dL (8.5-10.1); Creatinine, Blood 1.19 mg/dL (0.60-1.20); Potassium, Blood 4.2 mmol/L (3.5-5.5)
[2024-03-15] MEDS ORDERED: LevoFLOXacin 750 MG/D5W 150ML 150 ML IV ONE (20:05)
[2024-03-16 05:59] LABS: BASOPHILS ABSOLUTE AUTO 0.01 K/mm3 (0.00-0.23); BASOPHILS PERCENT AUTO 0 % (0-2); EOSINOPHILS ABSOLUTE AUTO 0.01 K/mm3 (0.00-0.68); EOSINOPHILS PERCENT AUTO 0 % (0-6); Hematocrit 30.9 % (37.0-53.0); Hemoglobin 10.4 g/dL (13.5-17.5); IMMATURE GRAN ABSOLUTE AUTO 0.04 K/mm3 (0.00-0.10); IMMATURE GRAN PERCENT AUTO 1 % (0-1); LYMPHOCYTES ABSOLUTE AUTO 0.13 K/mm3 (0.84-5.20); LYMPHOCYTES PERCENT AUTO 3 % (21-46); MONOCYTES ABSOLUTE AUTO 0.26 K/mm3 (0.16-1.47); MONOCYTES PERCENT AUTO 7 % (4-13); Mean Corpuscular HGB 35.9 pg (26.0-34.0); Mean Corpuscular HGB Conc 33.7 g/dL (31.5-36.5); Mean Corpuscular Volume 107 fL (80-100); NEUTROPHILS ABSOLUTE AUTO 3.35 K/mm3 (1.96-9.15); NEUTROPHILS PERCENT AUTO 88 % (41-73); NRBC ABSOLUTE 0.02 K/mm3 (0.00-0.02); NRBC Auto 0.5 /100 WBC (0.0-0.2); Platelet Count 104 K/mm3 (150-400); RDW Coefficient Variation 15.9 % (11.7-14.2); RDW Standard Deviation 61.4 fL (35.1-46.3)
[2024-03-16 06:17] LABS: Albumin/Globulin Ratio 1.1 (0.8-1.8); Bilirubin, Total 0.9 mg/dL (0.1-1.0); Calcium, Blood 7.5 mg/dL (8.5-10.1); Creatinine, Blood 1.08 mg/dL (0.60-1.20); Globulin, Blood 2.8 g/dL (2.2-4.0); Potassium, Blood 3.6 mmol/L (3.5-5.5); Total Protein, Blood 5.8 g/dL (6.4-8.2)
[2024-03-16 10:08] LABS: Adenovirus F 40/41 Not Detected (NOT DETECT); Astrovirus Not Detected (NOT DETECT); Campylobacter Sp Not Detected (NOT DETECT); Cryptosporidium Not Detected (NOT DETECT); Cyclospora Cayetanensis Not Detected (NOT DETECT); E. Coli O157 Not Detected (NOT DETECT); Entamoeba Histolytica Not Detected (NOT DETECT); Enteroaggregative E. coli-EAEC Not Detected (NOT DETECT); Enteropathogenic E. coli-EPEC Not Detected (NOT DETECT); Enterotoxigenic E. coli-ETEC Not Detected (NOT DETECT); Giardia Lamblia Not Detected (NOT DETECT); Norovirus GI/GII Not Detected (NOT DETECT); Plesiomonas Shigelloides Not Detected (NOT DETECT); Rotavirus A Not Detected (NOT DETECT); Salmonella Sp Not Detected (NOT DETECT); Sapovirus Not Detected (NOT DETECT); Shiga Toxin-prod E. coli-STEC Not Detected (NOT DETECT); Shigella/Enteroin E. coli-EIEC Not Detected (NOT DETECT); Vibrio Cholerae Not Detected (NOT DETECT); Vibrio Sp Not Detected (NOT DETECT); Yersinia Enterocolitica Not Detected (NOT DETECT)
[2024-03-16] MEDS ORDERED: Lactated Ringer's 1,000 ML IV SCH (11:10)
[2024-03-16 11:21] LABS: Bun/Creatinine Ratio 36.4 (12.0-20.0); Calcium, Blood 7.6 mg/dL (8.5-10.1); Creatinine, Blood 1.18 mg/dL (0.60-1.20)
[2024-03-16] MEDS ORDERED: Famotidine 10 MG/ML 2ML Vial IV SCH (12:00)
[2024-03-16 12:14] VITALS: BP 143/101
[2024-03-16] MEDS ORDERED: HYDCHL25 PO (12:44)
[2024-03-16] MEDS ORDERED: Prozac20 MG PO (12:45)
[2024-03-16 13:20] VITALS: BP 148/91
[2024-03-16] MEDS ORDERED: Sodium Bicarbonate 650 MG Tab PO SCH (14:00)
--- NOTE | 2024-03-16 14:43 | NUR ---
ADMIT TO PCU: PATIENT OPENING EYES AND LOOKING AROUND. SEEING HALLUCINATIONS OF "BUNNIES". TALKS FOR A FEW SECONDS AND THEN FALLS ASLEEP. PERRLA. DENIES PAIN. TELLS ME HIS NAME AND BIRTHDATE. STATES WE ARE IN [place] AND I DON'T KNOW WHATS GOING ON". 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 Q2 TURNING. WHEELCHAIR BOUND AT BASELINE. HELPS WITH TRANSFERS AT HOME. PATIENT MANAGES OWN MEDS AND STRAIGHT CATHS SELF 4-5 TIMES PER DAY. STATES PATIENT DRINKS AROUDN 3 COCKTAILS A DAY WITH ADDITIONAL SHOTS. TELE SHOWING SINUS RHYTHM/SINUS TACH WITH HR 90-100'S. SBP 140'S. DENIES CHEST PAIN/PRESSURE/PALPITATIONS. LR INFUSING PER EMAR. RADIAL PULSES STRONG. ON ROOM AIR UPON ADMIT SATING MID 90'S. PATIENT WITH HISTORY OF SLEEP APNEA. DESATS TO MID 60'S WHEN SLEEPING. 2L NASAL CANNULA PLACED. BROUGHT IN HOME CPAP. RESPIRATORY IN TO SET UP. LUNG SOUNDS CLEAR AND DIM IN BASES. PATIENT DENIES SOB/COUGH. EVEN AND UNLABORED RESPIRATIONS WHEN AWAKE. SNORE NOTED WHEN SLEEPING DUE TO SLEEP APNEA. BOWEL TONES PRESENT. COLOSTOMY IN PLACE WITH LIQUID BROWN OUTPUT. KOCK POUCH THAT PATIENT STRAIGHT CATHS AT HOME. ORDERS FOR STRAIGHT CATH HERE. THIS RN PREFORMED STRAIGHT CATH UPON ADMIT AND PATIENT HAD 150ML OUT OF YELLOW URINE. CLEAR LIQUID DIET AT THIS TIME. PATIENT WOKE AND WAS ABLE TO TAKE PO PILLS WITH WATER. CBG PRN. SCATTERED BRUISING TO ARMS. HEALED SCARS FROM PAST PRESSURE ULCERS. NO PRESENT OPEN WOUNDS. KILEY AT BEDSIDE AND ABLE TO CONFIRM MEDICATIONS AND ALLERGIES. DR. SETHI CALLED AND UPDATED ON MEDICATION LIST. CALL LIGHT IN REACH. BED ALARM IN PLACE. REMAINS AT BEDSIDE.
[2024-03-16 15:53] VITALS: BP 146/95
--- NOTE | 2024-03-16 16:04 | NUR ---
PATIENT WAKES WITH AT BEDSIDE. VITAL SIGNS STABLE. WEARING HOME CPAP WITH 3L O2 BLEED IN. PATIENT ASKS WHAT HAPPENED. ABLE TO TELL ME NAME, STATES HE THINKS HE IS AT THE HOSPITAL, THE MONTH AND WHO HIS IS. HE FALLS BACK ASLEEP QUICKLY. DENIES PAIN. CIWA SCORING 6 DUE TO MILD TREMORS AND DISORIENTED BY DAYS AND MILD HEADACHE. LR CONTINUES TO INFUSE PER EMAR.
[2024-03-16 19:56] VITALS: BP 149/92
[2024-03-16] MEDS ORDERED: levETIRAcetam 750 MG TABLET PO SCH (21:00)
[2024-03-17] VITALS (7 sets, daily range): BP systolic 132–176; BP diastolic 77–109
[2024-03-17] MEDS ORDERED: HYDROcodone 10-APAP 325 TAB PO ONE (00:55)
[2024-03-17 05:31] LABS: Base Excess Venous 1.7 mmol/L; Bicarbonate Venous 25.7 mmol/L (24.0-30.0); PCO2 Venous 42.3 mmHg (38-42)
--- NOTE | 2024-03-17 06:57 | NUR ---
NOC SHIFT SUMMARY MANPREET IS ORIENTED X2-4 OVERNIGHT, CIWAS 8-20S, PRNS GIVEN PER EMAR. ANXIOUS AT TIMES AND ATTEMPTING OOB WITHOUT HELP. VSS, REMOVING CPAP AND O2 PROBE. HALLUCINATIONS AT TIMES WELL ASKING "DO YOU HAVE ANY KIDS HERE" AND TALKING TO PEOPLE IN CHAIR BESIDE HIM. KOCK POUCH CATHED X2, ADEQUATE UOP. SR/ST ON TELEMETRY. POWERGLIDE PLACED BY OZ OROSCO RN OVERNIGHT TO ANTHONY. PT TOLERATED WELL
[2024-03-17 07:59] LABS: Bun/Creatinine Ratio 34.9 (12.0-20.0); Calcium, Blood 7.8 mg/dL (8.5-10.1); Creatinine, Blood 1.06 mg/dL (0.60-1.20)
[2024-03-17] MEDS ORDERED: Potassium Chloride 20 MEQ TabCR PO ONE (08:55)
[2024-03-17] MEDS ORDERED: Metoprolol Succinate 50 MG TABCR PO SCH (09:00)
[2024-03-17] MEDS ORDERED: Thiamine HCl 500 MG in NS 100 ML IV SCH (09:00)
[2024-03-17] MEDS ORDERED: FLUoxetine HCL 20 MG CAP PO SCH (09:00)
[2024-03-17] MEDS ORDERED: HYDROcodone 10-APAP 325 TAB PO PRN (09:00)
--- NOTE | 2024-03-17 11:58 | NUR ---
AM NOTE: PATIENT RESTING IN BED UPON SHIFT START AND CALM. DENIES PAIN. ABLE TO TELL ME WHO HE IS AND WHERE HE IS. CONFUSED ON DATE AND DETAILS OF WHY HE IS HERE. AT TIMES CONFUSING STATEMENTS AND CALLING OUT. CIWA PROTOCOL IN PLACE. MEDICATED PER CIWA SCORE AND EMAR. MOVING UPPER EXTREMITIES. VERY WEAK. BED ALARM IN PLACE. TELE SHOWING SR/ST WITH HR 80-100'S. DENIES CHEST PAIN/PRESSURE/PALPITATIONS. IV FLUIDS INFUSING PER EMAR. RADIAL PULSES STRONG. SC LOVENOX GIVEN PER EMAR. ON HOME CPAP WITH 3L BLEED IN SATING MID-HIGH 90'S. LUNG SOUNDS CLEAR AND DIM IN BASES. APNEA NOTED WHEN SLEEPING. BOWEL TONES PRESENT. COLOSTOMY BAG IN PLACE WITH BROWN LIQUID OUTPUT. KOCK POUCH IN PLACE, STRAIGHT CATH NEEDED. PATIENT BROUGHT IN HOME STRAIGHT CATH SUPPLIES. URINE YELLOW. PATIENT TOLERATING CLEAR LIQUID DIET AT THIS TIME. DENIES ABDOMINAL PAIN/NAUSEA. SKIN WITH SCATTERED BRUISING TO BILATERAL ARMS DR. SETHI BY THIS AM. THIS RN DISCUSSED HOME PAIN MEDS, AM POTASSIUM LAB LEVEL AND CIWA SCORING. CALL LIGHT IN REACH. BED ALARM IN PLACE. BED BATH GIVEN THIS AM.
[2024-03-17] MEDS ORDERED: Famotidine 20 MG Tab PO SCH (16:30)
--- NOTE | 2024-03-17 18:32 | NUR ---
SHIFT SUMMARY: NO ACUTE CHANGES. PATIENT MEDICATED PER CIWA SCORE AND SYMPTOMS. RESTING MOST OF SHIFT. REMAINS ALERT TO SELF AND PLACE BUT NEEDING REMINDERS OF WHY HE IS HERE. REDIRECTS EASILY AT THIS POINT. FLUIDS INFUSING. VITALS STABLE. REMAINS SR WITH HR 80-90'S. ON HOME CPAP WITH 3L BLEED IN OR 2L NASAL CANNULA IF REFUSING CPAP WHEN SLEEPING. STRAIGHT CATH X3 THIS SHIFT. COLOSTOMY OUTPUT REMAINS LIQUID/BROWN. BED BATH THIS SHIFT. CALL LIGHT IN REACH. BED ALARM IN PLACE.
--- NOTE | 2024-03-17 21:08 | NUR ---
ASSUMPTION OF CARE ASSUMED CARE OF PT AT 1900,BEDSIDE REPORT COMPLETED WITH DAYSWIFT NURSE.PT APPEARS SLEEPY BUT OPENS EYES TO VERBAL.RESPONDS TO QUESTIONS ANSWERED APPROPRIATELY.ON 3L OXYGEN VIA NASAL CANNULA.PLAN OF CARE REVIEWED.PT DENIES PAIN,DENIES NEEDS AT THIS TIME.CALL LIGHT AND PT'S ITEMS WITHIN REACH.PT CALM AND COOPERATIVE.WILL CONTINUE TO MONITOR.
[2024-03-18 00:18] VITALS: BP 155/103
[2024-03-18 03:31] VITALS: BP 138/83
--- NOTE | 2024-03-18 06:18 | NUR ---
SHIFT SUMMARY PT HAS BEEN SLEEPING ON/OFF THROUGHOUT THE NIGHT,MAX SCORE FOR CIWA=7.PT WORE CPAP AND WITH 3L BLEED INTERCHANGEABLY WITH 2L NC.PT'S OXYGEN SATURATION DROPS DOWN TO THE 70'S ON ON RA.PT OCCASIONALLY TOOK OFF THE NC/CPAP AND OXYGEN SATURATION DROPPED TO THE 70'S.PT GIVEN PRN PAIN MED ONCE FOR BACK PAIN.PT REPOSITIONED IN BED MULTIPLE TIMES PER PT'S REQUEST.PT SLEEPING AT THIS TIME,EASILY AROUSABLE.DENIES PAIN,DENIES NEEDS.CALL LIGHT AND PT'S ITEMS WITHIN REACH.
[2024-03-18 07:26] VITALS: BP 144/88
[2024-03-18 09:20] LABS: Bun/Creatinine Ratio 29.6 (12.0-20.0); Calcium, Blood 7.9 mg/dL (8.5-10.1); Creatinine, Blood 1.08 mg/dL (0.60-1.20); Potassium, Blood 3.4 mmol/L (3.5-5.5)
[2024-03-18 11:40] VITALS: BP 139/96
[2024-03-18 15:17] VITALS: BP 141/89
--- NOTE | 2024-03-18 18:36 | NUR ---
assumption of care PT DROWSEY AT START OF SHIFT AND NOT STAYING AWAKE TO ANSWER QUESTIONS. PT WOKE UP AND WAS ABLE TO STATE NAME/, LOCATION, AND YEAR. HR IN THE 90'S, SINUS RHYTHM, DENIES CP/PRESSURE, NUMB/TINGLING, SBP STABLE. O2 >92% ON 3L VIA NC. CPAP AT BEDSIDE, PT DESATS WITH SLEEP AND USES CPAP WITH 3-5L BLEED IN. PT HAS A BILAT AKA. ILLIEOSTOMY IN PLACE, WITH LIQUID STOOLS. PT WITH A KOCK PUCH IN PLACE, STRIAGHT CATHED INTERMITTENTLY. PT IS ABLE TO COMMUNICATE WHEN HE NEEDS TO URINATE. PT CATHED 3 TIMES T/O SHIFT. CIWAS PER PROTOCOL, CIWAS RANGING FROM 1-3 T/O SHIFT. PT RESTING IN BED AT THIS TIME. HE DENIES ANY QUESTIONS OR CONCERNS AT THIS TIME. WILL MONITOR PT AND REPORT TO PLANT ELECTRICIAN RN.
--- NOTE | 2024-03-18 19:41 | NUR ---
ASSUMPTION OF CARE ASSUMED CARE OF PT AT 1900,BEDSIDE REPORT COMPLETED.PT AWAKE AND ALERT,GIVEN A WARM BLANKET PER PT'S REQUEST.PLAN OF CARE REVIEWED.PT'S OXYGEN SATURATION 98% ON RA.PT DENIES PAIN,DENIES NEEDS AT THIS TIME.CALL LIGHT AND PT'S ITEMS WITHIN REACH.WILL CONTINUE TO MONITOR.
[2024-03-18 19:43] VITALS: BP 136/97
[2024-03-19 00:13] VITALS: BP 136/95
[2024-03-19 03:54] VITALS: BP 141/96
--- NOTE | 2024-03-19 06:23 | NUR ---
SHIFT SUMMARY PT HAS BEEN SLEEPING ON/OFF THROUGHOUT THE NIGHT,PT ALERT.PT HAS BEEN ON ROOM AIR ALL NIGHT,OXYGEN SATURATION >95%,CIWA ASSESSMENT COMPLETED ORDERED.PT SCORE 1.STRAIGHT CATHED3 TIMES PER PT'S REQUEST.PT ASKING FOR PAIN MEDS THIS MORNING,PT NOT DUE FOR PRN PAIN MED AT THIS TIME.NOT ABLE TO REACH PROVIDER AT THIS TIME FOR MORE PAIN MEDS.DENIES FURTHER NEEDS AT THIS TIME.CALL LIGHT AND PT'S ITEMS WITHIN REACH.WILL GIVE REPORT TO DAYSHIFT NURSE.
[2024-03-19 07:10] VITALS: BP 121/97
[2024-03-19] MEDS ORDERED: Furosemide 20 MG Tab PO SCH (09:05)
[2024-03-19] MEDS ORDERED: Potassium Chloride 10 Meq Tablet SA PO SCH (09:05)
--- NOTE | 2024-03-19 11:45 | NUR ---
ASSUMPTION OF CARE PT A&O X4, COOPERATIVE TO CARE. PT DENIES ANY CP/PRESSURE, NUMB/TINGLING, SBP STABLE. O2 >92% ON RA, PT DENIES SOB AT THIS TIME. PT HAS AN ILLIEOSTOMY IN PLACE. PT ALSO HAS A KOCK POUCH IN PLACE, STRAIGHT CATHETERIZATION NEEDED. PER PT HE STRAIGHT CATHS AT HOME BY HIMSELF. PT REPORTS HE HAS DRYNESS/BURNING OF HIS EYES AND REQUESTING EYE DROPS. MD NOTIFIED, ORDER PLACED FO ARTIFICIAL TEARS. PT WITH BACK PAIN 7-10/10, MEDICATING PER EMAR. PT CIWAS RANGING FROM 0-1, CIWA MONITORING D/C'D. PROVIDER TO BEDSIDE TO DISCUSS PLAN OF CARE WITH PT AND HIS SPOUSE. PT CHANGED TO MEDICAL STATUS NO TELEMETRY. TELE REMOVED FROM PT. PT/SPOUSE EXPRESSED CONCERN FOR EDEMA OF THE [place]/PAN[place] AREA. PROVIDER ORDERED LASIX, MEDICATED PER EMAR. PT/OT ORDERED FOR PT. PT DENIES QUESTIONS OR CONCERNS AT THIS TIME. WILL MONITOR PT AND REPORT TO FLEXOGRAPHIC PRESS OPERATOR RN.
[2024-03-19] MEDS ORDERED: Peg 400/Hypromellose/Glycerin 15 DROP/ML BTL BOTHEYES PRN (12:05)
[2024-03-19 14:33] VITALS: BP 147/100
--- NOTE | 2024-03-19 17:49 | NUR ---
SHIFT SUMMARY PT A&O X4, COOPERATIVE TO CARE. PT MEDICAL STATUS, NO TELE. HE DENIES CP/PRESSURE, NUMB/TINGLING, SBP STABLE. O2 >92% ON RA, PT DENIES SOB. ILLEOSTOMY DRAINING BROWN LIQUID STOOL. KOCK POUCH WITH STRAIGHT CATH NEEDED. PT/OT WORKED WITH PT TODAY. PT DIURESED WELL TODAY WITH LASIX. NO ACUTE CHANGES T/O SHIFT. WILL MONITOR PT AND REPORT TO TIE CUTTER RN.
[2024-03-19 20:26] VITALS: BP 149/105
[2024-03-20 03:00] VITALS: BP 142/96
--- NOTE | 2024-03-20 05:35 | NUR ---
SHIFT SUMMARY 53 YR M TRANSFERED FROM U THIS SHIFT. FULL CODE. NO ACUTE CHANGES. STRAIGHT CATH X 1 THIS SHIFT W/ YIELD OF 50 ML. ILEOSTOMY IS PRODUCING VERY THIN, BROWN STOOL. PT C/O PAIN AND ANXIETY AND WAS MEDICATED PER EMAR. LEFT UPPER POWERGLIDE DOES NOT DRAW. LR INFUSING @ 100ML/HR. NO CHANGES TO REPORT. WILL CONTINUE TO MONITOR. BED IN LOW POSITION AND CALL LIGHT IN REACH.
[2024-03-20 05:58] LABS: Free Thyroxine 0.97 ng/dL (0.70-1.60); Thyroid Stimulating Hormone 6.53 uIU/mL (0.360-4.800)
[2024-03-20 07:25] VITALS: BP 138/96
--- NOTE | 2024-03-20 09:42 | NUR ---
ASSUMED CARE OF PATIENT. SLEEPING DURING SHIFT CHANGE. CALLED AROUND 0830 REQUESTING PAIN MEDICATION; NOT DUE UNTIL 1030. HEARD CALLING "NUUUURSE!" FROM HIS ROOM. UPON ENTERING ROOM, LAYING SUPINE IN BED. ASKED WHERE CALL LIGHT WAS AND HE REPLIED HE DIDN'T KNOW; REMOTE NOTED OT BE NEXT T HIS HAND. REQUESTED TO BE HANDED HIS CELL PHONE. GIVEN PHONE, CALL LIGHT AND TOLD WILL BE BACK IN ONE HOUR WITH PAIN MEDICATION.
[2024-03-20 14:05] LABS: Influenza A, PCR NEGATIVE (NEGATIVE); Influenza B, PCR NEGATIVE (NEGATIVE); Resp Syncytial Virus, PCR NEGATIVE (NEGATIVE); SARS-Cov-2 (COVID-19) PCR, MMC NEGATIVE (NEGATIVE)
[2024-03-20 15:15] VITALS: BP 137/93
[2024-03-20] MEDS ORDERED: HYDROcodone 5-APAP 325 TAB PO PRN (16:30)
[2024-03-20] MEDS ORDERED: OxyCODONE HCL 15 MG TAB.SR.12H PO SCH (18:00)
--- NOTE | 2024-03-20 18:07 | NUR ---
PAIN MEDICATION REGIMEN CHANGED FROM HYDROCODONE 10/325MG 2 PO TID PRN TO OXYCONTIN IR 15MG BID ROUTINELY. FIRST DOSE SCHEDULED TO START AT 2100 AND UNABLE TO PULL FROM [facility]. CALL TO PHARMACY AND SPOKE WITH ANAHY WHO FIRST DOSE TO START NOW PATIENT HAS NOT HAD ANY PAIN MEDICATION SINCE 929 AND ONLY HAS A 5MG NORCO AVAILABLE. DOSE ADMINISTERED.
--- NOTE | 2024-03-20 20:16 | NUR ---
END OF SHIFT SUMMARY: A&Ox4. PLEASANT AND COOPERATIVE WITH CARE. CALLS APPROPRIATELY AND IS ABLE TO ADVOCATE NEEDS EFFECTIVELY. OSTOMY BAG FOR STOOL WITH GREENISH BROWN, MOSTLY LIQUID OUTPUT. LEFT K-POUCH STRAIGHT CATHED x3 TODAY; PATIENT S BROUGHT PT S OWN CATHS FROM HOME HE PREFERS HIS STYLE. PYURIA NOTED, WHICH HE AND REPORT IS NORMAL FOR HIM. HAS BEEN VERY TIRED AND WITHDRAWN TODAY. TO BEDSIDE, ASSISTED WITH BED BATH. PAIN MEDS NOT PROVIDING ADEQUATE COVERAGE AND WERE CHANGED FROM HYDROCODONE 10/325MG 2 TABS TID PRN TO OXYCONTIN IR 15MG BID ROUTINELY. FIRST DOSE GIVEN AT 1800. WILL ALSO HAVE NORCO 5/325MG AVAILABLE FOR BTP. COUGH, CHILLS AND MALAISE REPORTED TODAY; NEGATIVE FLU, COVID AND RSV SWAB DONE. LR STOPPED SECONDARY TO BIBASILAR COARSE CRACKLES. DID NOT WORK WITH OT TODAY DUE TO FATIGUE; WILL ATTEMPT AGAIN TOMORROW. PLAN FOR SNF. BED IN LOWEST POSITION, CALL LIGHT WITHIN REACH, ALL NEEDS MET. REPORT TO ONCOMING NURSE.
[2024-03-20 21:50] VITALS: BP 148/100
[2024-03-21 03:37] VITALS: BP 152/109
[2024-03-21 04:05] VITALS: BP 130/98
--- NOTE | 2024-03-21 05:51 | NUR ---
SHIFT SUMMARY PT A&O X4. PT SLEPT SHORT PERIODS DURING THE NIGHT. C/O COUGH AND UPPER RESPIRATORY CONGESTION. MEDICATED FOR BACK PAIN PER EMAR. OSTOMY WITH LIQUID BROWN STOOL. K-POUCH CATH'D X3. PT C/O INCREASED ANXIETY AND "TREMORS AND TICKS", REQUESTED MEDICATION FOR ALCOHOL WITHDRAWAL- CIWA SCORE=8 AT THAT TIME, MEDICATED PER EMAR. PT WITH DECREASED SYMPTOMS, BUT VERBALIZED FRUSTRATION WITH DIFFICULTY SLEEPING TONIGHT. STATED, "I JUST MISS MY DAUGHTER". BED IN LOWEST POSITION, CALL LIGHT WITHIN REACH, SIDERAILS UP X2.
[2024-03-21 06:06] LABS: Bun/Creatinine Ratio 19.1 (12.0-20.0); Calcium, Blood 8.7 mg/dL (8.5-10.1); Creatinine, Blood 1.1 mg/dL (0.60-1.20); Potassium, Blood 3.4 mmol/L (3.5-5.5)
[2024-03-21] MEDS ORDERED: Potassium Chloride 20 MEQ TabCR PO ONE (08:05)
[2024-03-21 08:10] VITALS: BP 153/97
[2024-03-21] MEDS ORDERED: HYDROcodone 5-APAP 325 TAB PO PRN (09:40)
[2024-03-21] MEDS ORDERED: Benzonatate 100 MG Cap PO PRN (09:45)
[2024-03-21] MEDS ORDERED: Sodium Bicarbonate 650 MG Tab PO SCH (10:15)
[2024-03-21] MEDS ORDERED: Pregabalin 75 MG Cap PO SCH (10:15)
[2024-03-21 15:33] VITALS: BP 166/103
--- NOTE | 2024-03-21 18:11 | NUR ---
END OF SHIFT SUMMARY: A&Ox4. PLEASANT AND COOPERATIVE WITH MOST CARE. CALLS APPROPRIATELY AND IS ABLE TO ADVOCATE NEEDS EFFECTIVELY. OSTOMY BAG FOR STOOL WITH GREENISH BROWN, MOSTLY LIQUID OUTPUT. LEFT LOWER QUADRANT K-POUCH STRAIGHT CATHED x2 TODAY USING OWN CATH KITS FROM HOME. SLEEPING A LOT TODAY. REFUSED TO WORK WITH PT x2; SEE PT NOTE. PAIN MEDS CHANGED AGAIN. HOME DOSE OF PREGABALIN REINTRODUCED TO REGIMEN. PATIENT NOW, THIS EVENING, UPSET THAT PT NEVER CAME BACK AND WANTS TO GET UP INTO WHEELCHAIR . PER PT, HE WAS UNSAFE TRANSFERRING WITHOUT LIFT IN PCU DUE TO SHOULDER PAIN AND LIFT RECOMMENDED. PATIENT DOES NOT WANT TO USE LIFT. BED IN LOWEST POSITION, CALL LIGHT WITHIN REACH, ALL NEEDS MET. REPORT TO ONCOMING NURSE.
[2024-03-21 20:19] VITALS: BP 147/99
[2024-03-22 02:21] VITALS: BP 136/89
--- NOTE | 2024-03-22 07:31 | NUR ---
SHIFT SUMMARY PT SLEPT INTERMITTENTLY THROUGH THE NIGHT. MEDICATED FOR BACK PAIN WITH NORCO PER EMAR. NONPRODUCTIVE COUGH CONTINUES. TESSALON PUSHPA GIVEN X1 PER EMAR. PT REFUSING TO TURN MOST OF THE NIGHT. AT 0500, PT AGREED TO BE FLOATED ON THE BED WITH A PILLOW UNDER EACH HIP. SKIN REMAINS INTACT. K-POUCH CATH'D X3. OSTOMY EMPTIED PRN. BED IN LOWEST POSITION, CALL LIGHT WITHIN REACH, SIDERAILS UP X2.
[2024-03-22 07:50] VITALS: BP 127/90
[2024-03-22 15:07] VITALS: BP 137/99
--- NOTE | 2024-03-22 16:42 | NUR ---
PT WORKED WITH PT EARLIER IN THE MORNING. PT HAD NO C/O PAIN. PT RANG APPROPTIATLY FOR LETTING THIS NURSE KNOW WHEN HE HAD TO VOID AND ASSIST WITH SELF CATHING. PT HAS NO QUESTIONS OR CONCERNS AT THIS TIME
[2024-03-22 19:21] VITALS: BP 138/100
[2024-03-22] MEDS ORDERED: HyDROXyzine HCl 25 MG Tab PO PRN (20:00)
[2024-03-23 04:46] VITALS: BP 111/87
[2024-03-23 06:34] LABS: Bun/Creatinine Ratio 23.4 (12.0-20.0); Calcium, Blood 9.8 mg/dL (8.5-10.1); Creatinine, Blood 1.37 mg/dL (0.60-1.20); Potassium, Blood 4.2 mmol/L (3.5-5.5)
--- NOTE | 2024-03-23 06:34 | NUR ---
SHIFT SUMMARY PT REQUESTED MEDICATION FOR ANXIETY AT START OF SHIFT, VERBALIZING DIFFICULTY SLEEPING DUE TO ANXIETY FOR PAST COUPLE OF NIGHTS. ATARAX ORDERED, AND GIVEN X1 PER EMAR WITH PT SLEEPING LONG INTERVALS THROUGH THE NIGHT. MEDICATED X1 FOR BACK PAIN WITH NORCO PER EMAR. K-POUCH CATH'D X2, AND OSTOMY EMPTIED X3 THROUGH THE SHIFT. PT CONTINUES TO REFUSE CPAP, BUT 2L NC AND CONTINUOUS PULSE IN PLACE. PT ALSO CONTINUES TO REFUSE TO LAY ON HIS SIDE, BUT DID ALLOW PILLOWS ON EACH SIDE TO BE "FLOATED" ON BED. BED IN LOWEST POSITION, CALL LIGHT WITHIN REACH, SIDERAIL UP X2.
[2024-03-23 07:56] VITALS: BP 132/94
[2024-03-23] MEDS ORDERED: Dextrose 5% 1,000 ML IV SCH (09:00)
[2024-03-23 15:42] VITALS: BP 119/90
--- NOTE | 2024-03-23 17:01 | NUR ---
NO CHANGES IN PT STATUS TODAY. PT HAD MINIMAL C/O PAIN TODAY SEE EMAR FOR DETAILS. PT WRANG APPROPRIATELY FOR STRAIGHTCATHING KPOUCH EVERY Q2-Q3H. PT HAS NO QUESTIONS OR CONCERNS AT THIS TIME.
[2024-03-23] MEDS ORDERED: Amoxicillin/Clavulanate K 875 MG Tab PO SCH (21:00)
[2024-03-23 21:13] VITALS: BP 138/93
[2024-03-24 02:59] VITALS: BP 116/85
--- NOTE | 2024-03-24 06:39 | NUR ---
SHIFT SUMMARY PT SLEPT INTERMITTENTLY THROUGH THE NIGHT. IVF CONTINUES PER ORDER. OSTOMY AND K-POUCH EMPTIED PRN. PT REFUSED CPAP, BUT CONTINUOUS PULSE OX AND 02 ON. PT TURNS WITH ASSIST. REFUSED TO LAY ON SIDE, BUT PILLOWS UNDER TO "FLOAT" HIM ON BED. BED IN LOWEST POSITION, CALL LIGHT WITHIN REACH, SIDERAILS UP X2.
[2024-03-24 07:42] LABS: Bun/Creatinine Ratio 26.8 (12.0-20.0); Creatinine, Blood 1.23 mg/dL (0.60-1.20); Potassium, Blood 4.3 mmol/L (3.5-5.5)
[2024-03-24 07:51] VITALS: BP 141/95
[2024-03-24] MEDS ORDERED: Lactulose 20 GM/30 ML UDC PO SCH (09:00)
[2024-03-24] MEDS ORDERED: AMOCLA875 PO (13:53)
[2024-03-24] MEDS ORDERED: BENZ100A PO (13:54)
[2024-03-24] MEDS ORDERED: HYDHCL25 PO (13:55)
[2024-03-24] MEDS ORDERED: LACT10SY PO (13:56)
[2024-03-24] MEDS ORDERED: LEVE500 PO (14:41)
[2024-03-24] MEDS ORDERED: PREG75 PO (14:43)
[2024-03-24] MEDS ORDERED: ARTIFICIAL TEAR15 M6 BOTHEYES (14:43)
[2024-03-24 15:49] VITALS: BP 133/90
--- NOTE | 2024-03-24 15:49 | NUR ---
RECEIVED NOTIFICATION THAT PATIENT IS UNABLE TO DISCHARGE TO SNF TODAY DUE TO STAFFING ISSUE AT SNF.
--- NOTE | 2024-03-24 18:40 | NUR ---
END OF SHIFT SUMMARY: A&Ox4. PLEASANT AND COOPERATIVE WITH MOST CARE. CALLS APPROPRIATELY AND IS ABLE TO ADVOCATE NEEDS EFFECTIVELY. OSTOMY BAG WITH LIQUID BROWN STOOL. LEFT LOWER QUADRANT K-POUCH STRAIGHT CATHED x2 TODAY USING OWN CATH KITS FROM HOME. MISSED WORKING WITH PT AGAIN. WAS TO DC TO SNF, BUT DUE TO STAFFING ISSUES AT FACILITY, WAS UNABLE TO DC. PLAN FOR DC TOMORROW. MED REC AND DC PAPERWORK COMPLETED. NO ACUTE CONCERNS. BED IN LOWEST POSITION, CALL LIGHT WITHIN REACH, ALL NEEDS MET. REPORT TO ONCOMING NURSE.
[2024-03-24 19:37] VITALS: BP 119/83
[2024-03-25 03:00] VITALS: BP 119/92
[2024-03-25 07:54] VITALS: BP 137/97
--- NOTE | 2024-03-25 16:33 | NUR ---
END OF SHIFT SUMMARY: A&Ox4. PLEASANT AND COOPERATIVE WITH MOST CARE. CALLS APPROPRIATELY AND IS ABLE TO ADVOCATE NEEDS EFFECTIVELY. OSTOMY BAG FOR STOOL WITH GREENISH BROWN, MOSTLY LIQUID OUTPUT. LEFT LOWER QUADRANT K-POUCH STRAIGHT CATHED x2 TODAY USING OWN CATH KITS FROM HOME. WORKED WITH OT AND GOT UP INTO CHAIR PRIOR TO [facility] TRANSPORT ARRIVING FOR TRANSPORT TO [facility]. PATIENT LEFT FLOOR WITH ALL BELONGINGS AND DISCHARGE PACKET AT 1630.
== END 2024-03-25 16:45 | DRG 896 ==
LOC: ER 11:06 → PCU 11:07 → ERHOLD 11:07 → PCU 11:07 → ERHOLD 11:07 → PCU 03-16 12:09 → MEDS 03-19 21:55
PROVIDERS: Emergency Medicine; Internal Medicine; Student in an Organized Health Care Education/Training Program; ADMIT Internal Medicine
DX: F10.139 Alcohol abuse with withdrawal, unspecified (principal); J69.0 Pneumonitis due to inhalation of food and vomit; E87.21 Acute metabolic acidosis; G82.20 Paraplegia, unspecified; F11.20 Opioid dependence, uncomplicated; R11.2 Nausea with vomiting, unspecified; K29.20 Alcoholic gastritis without bleeding; I12.9 Hypertensive chronic kidney disease with stage 1 through stage 4 chronic kidney disease, or unspecified chronic kidney disease; N18.2 Chronic kidney disease, stage 2 (mild); G89.4 Chronic pain syndrome; G47.33 Obstructive sleep apnea (adult) (pediatric); Z89.512 Acquired absence of left leg below knee; Z89.511 Acquired absence of right leg below knee; Z93.3 Colostomy status; Z88.2 Allergy status to sulfonamides; Z88.5 Allergy status to narcotic agent; Z88.8 Allergy status to other drugs, medicaments and biological substances; Z79.899 Other long term (current) drug therapy; Z98.890 Other specified postprocedural states; Z93.2 Ileostomy status
CPT/HCPCS: 0241U; 36415; 51701; 71045; 74177; 80048; 80053; 81001; 82140; 82803; 83690; 83735; 83880; 84295; 84439; 84443; 85025; 87077; 87086; 87186; 87507; 94762; 96361; 96365-59; 96366; 96372-59; 96375; 96376; 97110-CQ; 97162; 97166; 97530; 97535; 99285-25; A9270; C1751; G0378; J1171; J1650; J1956; J2060; J2405; J3010; J3411; J7030; J7070; J7120; Q9967

== ENCOUNTER 2024-10-02 10:05 | Emergency (ER) | payer MEDICARE ==
[~2024-10-02] VITALS: Ht 91.4 cm; Wt 68.0 kg
[~2024-10-02 10:05] MED LIST changes: +AMOCLA875 PO; +ARTIFICIAL TEAR15 M6 BOTHEYES; +HYDCHL25 PO; +HYDHCL25 PO; +LACT10SY PO; +LEVE500 PO; +PREG75 PO; +Prozac20 MG PO
[2024-10-02 10:13] VITALS: BP 187/115
[2024-10-02] MEDS ORDERED: Ondansetron HCl 2 MG / ML 2ML Vial IV PRN (10:25)
[2024-10-02] MEDS ORDERED: Ketorolac Tromethamine 30mg Vial IV ONE (10:40)
[2024-10-02 10:50] LABS: BASOPHILS ABSOLUTE AUTO 0.04 K/mm3 (0.00-0.23); BASOPHILS PERCENT AUTO 1 % (0-2); EOSINOPHILS ABSOLUTE AUTO 0.02 K/mm3 (0.00-0.68); EOSINOPHILS PERCENT AUTO 0 % (0-6); Hematocrit 39.1 % (37.0-53.0); Hemoglobin 13.3 g/dL (13.5-17.5); IMMATURE GRAN ABSOLUTE AUTO 0.02 K/mm3 (0.00-0.10); IMMATURE GRAN PERCENT AUTO 0 % (0-1); LYMPHOCYTES ABSOLUTE AUTO 0.38 K/mm3 (0.84-5.20); LYMPHOCYTES PERCENT AUTO 7 % (21-46); MONOCYTES ABSOLUTE AUTO 0.59 K/mm3 (0.16-1.47); MONOCYTES PERCENT AUTO 11 % (4-13); Mean Corpuscular HGB Conc 34.0 g/dL (31.5-36.5); Mean Corpuscular Volume 104 fL (80-100); NEUTROPHILS ABSOLUTE AUTO 4.21 K/mm3 (1.96-9.15); NEUTROPHILS PERCENT AUTO 80 % (41-73); NRBC ABSOLUTE 0.00 K/mm3 (0.00-0.02); NRBC Auto 0.0 /100 WBC (0.0-0.2); Platelet Count 175 K/mm3 (150-400); RDW Coefficient Variation 14.6 % (11.7-14.2); RDW Standard Deviation 56.1 fL (35.1-46.3)
[2024-10-02 11:22] LABS: Alanine Aminotransfer (ALT/SGP 39.0 U/L (12-78); Albumin, Blood 2.8 g/dL (3.4-5.0); Albumin/Globulin Ratio 0.8 (0.8-1.8); Anion Gap 14.0 mmol/L (3-11); Aspartate Aminotrans (AST/SGOT 45.0 U/L (12-37); Bilirubin, Total 0.4 mg/dL (0.1-1.0); Blood Urea Nitrogen 47.0 mg/dL (8-24); CO2, Blood 20.0 mmol/L (21-32); Calcium, Blood 7.6 mg/dL (8.5-10.1); Chloride, Blood 108.0 mmol/L (98-108); Creatinine, Blood 1.37 mg/dL (0.60-1.20); Globulin, Blood 3.3 g/dL (2.2-4.0); Glucose, Blood 81.0 mg/dL (70-99); Potassium, Blood 4.2 mmol/L (3.5-5.5); Sodium, Blood 138.0 mmol/L (136-145); Total Protein, Blood 6.1 g/dL (6.4-8.2)
[2024-10-02 12:37] LABS: Source, Urine Clean Catch
[2024-10-02 12:43] LABS: Bilirubin, Urine Neg (Neg); Color, Urine Yellow (P-Yellow); Glucose Qualitative, Urine Neg (Neg); Ketones, Urine 1+ (Neg); Leukocyte Esterase, Urine 3+ (Neg); Protein, Urine 2+ (Neg); Specific Gravity, Urine 1.010 (1.003-1.022); Urobilinogen, Urine NORM (Normal)
[2024-10-02 13:10] LABS: White Blood Cells, Urine 50-100 /hpf (0-5)
[2024-10-02 14:06] LABS: pH Blood Venous 7.34 (7.34-7.37)
[2024-10-02] MEDS ORDERED: CefTRIAXone Sodium 1,000 MG in NS 50 ML IV ONE (14:10)
[2024-10-02] MEDS ORDERED: HYDROmorphone HCl/Pf 1MG SYR IV ONE (14:10)
[2024-10-02] MEDS ORDERED: ONDA4ODT MM (14:44)
[2024-10-02] MEDS ORDERED: CEPH500 PO (14:44)
== END 2024-10-02 14:59 | disposition home or self-care (01) ==
LOC: ER 10:05
PROVIDERS: Emergency Medicine
DX: N39.0 Urinary tract infection, site not specified (principal); Z93.3 Colostomy status; Z88.5 Allergy status to narcotic agent; Z88.2 Allergy status to sulfonamides; Z88.1 Allergy status to other antibiotic agents; Z88.8 Allergy status to other drugs, medicaments and biological substances; Z87.891 Personal history of nicotine dependence; Z79.899 Other long term (current) drug therapy
CPT/HCPCS: 74177; 80053; 81001; 82803; 83690; 85025; 87086; 96365-59; 96375; 99284-25; J0696; J1171; J1885; J2405; Q9967

== ENCOUNTER 2024-10-30 18:02 | Emergency (ER) | payer SELFPAY ==
[~2024-10-30] VITALS: Wt 72.6 kg
[2024-10-30 18:31] LABS: BASOPHILS ABSOLUTE AUTO 0.03 K/mm3 (0.00-0.23); BASOPHILS PERCENT AUTO 1 % (0-2); EOSINOPHILS ABSOLUTE AUTO 0.03 K/mm3 (0.00-0.68); EOSINOPHILS PERCENT AUTO 1 % (0-6); Hematocrit 40.8 % (37.0-53.0); Hemoglobin 13.3 g/dL (13.5-17.5); IMMATURE GRAN ABSOLUTE AUTO 0.01 K/mm3 (0.00-0.10); IMMATURE GRAN PERCENT AUTO 0 % (0-1); LYMPHOCYTES ABSOLUTE AUTO 0.31 K/mm3 (0.84-5.20); LYMPHOCYTES PERCENT AUTO 6 % (21-46); MONOCYTES ABSOLUTE AUTO 0.45 K/mm3 (0.16-1.47); MONOCYTES PERCENT AUTO 8 % (4-13); Mean Corpuscular HGB Conc 32.6 g/dL (31.5-36.5); Mean Corpuscular Volume 107 fL (80-100); NEUTROPHILS ABSOLUTE AUTO 4.50 K/mm3 (1.96-9.15); NEUTROPHILS PERCENT AUTO 84 % (41-73); NRBC ABSOLUTE 0.00 K/mm3 (0.00-0.02); NRBC Auto 0.0 /100 WBC (0.0-0.2); Platelet Count 122 K/mm3 (150-400); RDW Coefficient Variation 14.9 % (11.7-14.2); RDW Standard Deviation 59.2 fL (35.1-46.3)
[2024-10-30 18:59] LABS: Source, Urine Straight Cath
[2024-10-30 18:59] LABS: Alanine Aminotransfer (ALT/SGP 60.0 U/L (12-78); Albumin, Blood 3.3 g/dL (3.4-5.0); Albumin/Globulin Ratio 1.1 (0.8-1.8); Anion Gap 15.0 mmol/L (3-11); Aspartate Aminotrans (AST/SGOT 102.0 U/L (12-37); Bilirubin, Total 0.9 mg/dL (0.1-1.0); Blood Urea Nitrogen 36.0 mg/dL (8-24); CO2, Blood 18.0 mmol/L (21-32); Calcium, Blood 8.9 mg/dL (8.5-10.1); Chloride, Blood 109.0 mmol/L (98-108); Creatinine, Blood 1.4 mg/dL (0.60-1.20); Globulin, Blood 3.1 g/dL (2.2-4.0); Glucose, Blood 81.0 mg/dL (70-99); Potassium, Blood 4.3 mmol/L (3.5-5.5); Sodium, Blood 138.0 mmol/L (136-145); Total Protein, Blood 6.4 g/dL (6.4-8.2)
[2024-10-30 19:06] LABS: Bilirubin, Urine Neg (Neg); Glucose Qualitative, Urine Neg (Neg); Ketones, Urine 2+ (Neg); Leukocyte Esterase, Urine 3+ (Neg); Protein, Urine 2+ (Neg); Urobilinogen, Urine NORM (Normal)
[2024-10-30 19:14] LABS: Specific Gravity, Urine 1.005 (1.003-1.022)
[2024-10-30 19:21] LABS: Color, Urine Pale Yellow (P-Yellow); Red Blood Cells, Urine 0-2 /hpf (0-2); White Blood Cells, Urine TNTC /hpf (0-5)
[2024-10-30] MEDS ORDERED: HYDROmorphone HCl/Pf 1MG SYR IV ONE (22:20)
[2024-10-30] MEDS ORDERED: CIPROFLOXACIN IV ONE (22:25)
[2024-10-30] MEDS ORDERED: [UNRECOGNIZED DRUG - OTHER] IV ONE (22:25)
[2024-10-31] MEDS ORDERED: CIPR500 PO (00:12)
[2024-10-31] MEDS ORDERED: ONDA4ODT MM (00:13)
[2024-10-31 00:47] VITALS: BP 144/95
== END 2024-10-31 00:47 | disposition home or self-care (01) ==
LOC: ER 18:02
PROVIDERS: Emergency Medicine
DX: N13.6 Pyonephrosis (principal); I12.9 Hypertensive chronic kidney disease with stage 1 through stage 4 chronic kidney disease, or unspecified chronic kidney disease; N18.9 Chronic kidney disease, unspecified; D63.1 Anemia in chronic kidney disease; R74.01 Elevation of levels of liver transaminase levels; G82.20 Paraplegia, unspecified; G47.30 Sleep apnea, unspecified; N31.9 Neuromuscular dysfunction of bladder, unspecified; Z93.59 Other cystostomy status; Z93.2 Ileostomy status; Z87.891 Personal history of nicotine dependence; Z88.1 Allergy status to other antibiotic agents; Z88.5 Allergy status to narcotic agent; Z88.2 Allergy status to sulfonamides; Z88.8 Allergy status to other drugs, medicaments and biological substances; Z79.2 Long term (current) use of antibiotics; Z79.899 Other long term (current) drug therapy
CPT/HCPCS: 74177; 80053; 81001; 83690; 84484; 85025; 87086; 93005; 93010; 96374; 96374-59; 99284-25; A9270; J1171; Q9967